=== PATIENT | female | born 1940 | race African-American/Black ===

== ENCOUNTER 2019-06-08 13:03 | Outpatient (CLI) | payer MEDICARE, SELFPAY ==
--- NOTE | ~2019-06-08 | CT_ITS ---
EXAMINATION: CT chest wo con DATE: 06/08/2019 13:29 INDICATION: Malignant neoplasm of the left lower lobe, history of breast cancer TECHNIQUE: Computed tomography (CT) of the chest was performed without intravenous contrast. The dose -length product (DLP) was 207.53 mGy-cm. Automated exposure control and iterative reconstruction tech nique were employed. COMPARISON: 10/16/2018 FINDINGS: There are airspace opacities as well as air bronchograms in the superior segment of the lef t lower lobe in the region of the previous biopsy proven lung cancer. There is moderate emphysema. Th ere is chronic scarring in the left lung apex. Subpleural reticular opacities seen anteriorly in the lungs may reflect therapy for prior breast cancer. There are lumpectomy changes in both breasts. Ther e is no pleural effusion or pneumothorax. No pathologically enlarged thoracic lymph nodes are identif ied. The heart size is normal. Calcified coronary artery atherosclerosis is noted. A hemangioma of th e T9 vertebral body and chronic compression fracture of T11 are again seen. IMPRESSION: 1. Bandlike airspace opacity and air bronchograms in the superior segment of the left lower lobe at t he site of the biopsy-proven malignancy. Findings could represent treatment change and/or residual ma lignancy. Reviewed, dictated and finalized at location A. GER MILITARY IMPRESSION: 1. Bandlike airspace opacity and air bronchograms in the superior segment of th e left lower lobe at the site of the biopsy-proven malignancy. Findings could r epresent treatment change and/or residual malignancy.
== END 2019-06-08 13:04 | disposition home or self-care (01) ==
LOC: ANHIMG 13:05
PROVIDERS: Visit Provider Radiology Radiation Oncology
DX: C34.32 Malignant neoplasm of lower lobe, left bronchus or lung (principal)
CPT/HCPCS: 71250

== ENCOUNTER 2019-06-16 16:16 | Emergency (ER) | payer MEDICARE, SELFPAY ==
--- NOTE | ~2019-06-16 | CT_ITS ---
EXAMINATION: CT brain wo con EXAM DATE: 06/16/2019 18:38 INDICATION: Posterior head injury. Seizure. TECHNIQUE: Spiral CT of the head was performed without contrast. Axial, coronal and sagittal images were reviewed. The dose-length product (DLP) for this examination was 605.33 mGy-cm. The exposure w as tailored according to patient size, and iterative reconstruction (ASIR) was used as additional dos e reduction technique. Comparison is made to prior examination from 05/01/2014. FINDINGS: There is an old small left parietal lobe cortical infarction. Compared to previous examinat ion, interval development of low density, more extensive encephalomalacia extending from this region down into the left temporoparietal, subinsular region. Has a chronic appearance. There is no acute intraparenchymal hemorrhage. No evidence of intraparenchymal brain mass lesion. N o evidence of acute infarction. There is no mass effect or midline shift. The ventricles are normal in size. There are no extra-axial collections. There are no acute calvarial fractures. The orbits are unremarkable. Small to moderate-sized posterior scalp contusion. The visualized sinuses and mast oid air cells are well aerated. IMPRESSION: 1. No acute intracranial findings. 2. Posterior scalp contusion. 3. 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 Reviewed, dictated and finalized at location A. ITIAN ASSISTANT
[2019-06-16 16:25] VITALS: BP 177/80; PULSE 87; RESP 16; TEMP 36.5; O2SAT 100
--- NOTE | 2019-06-16 19:12 | ED.HEATRA ---
HPI - Head Injury General Chief complaint: Head Injury Stated complaint: struck head during seizure Time Seen by Provider: 06/16/19 19:10 Source: patient and RN notes reviewed Mode of arrival: ambulatory Limitations: no limitations History of Present Illness HPI Narrative: Pt is a 79 y/o female presenting to the ED c/o occipital swelling. Pt reports she had a Sz and fell earlier today causing a swelling on her occipital head. Pt notes she has a Hx of Sz's and states she has stopped taking her prescription of Keppra due to not feeling like I need it . Pt's daughter at bedside states the pt has Sz's often but does not remember them. Pt notes she sees Dr. Moreno as her PCP and notes she is not currently seeing a Neurologist but is trying to set up an appointment with one. Pt also reports dysphagia. Per daughter, the pt lives alone. Pt states the swelling on her head has alleviated since its onset. Pt reports Hx's of HTN, breast cancer 2 years ago, and lumpectomy. Onset (ago): unknown (Earlier tonight) Mechanism of Injury: fall Place: home Associated symptoms: other (Chronic dysphagia) Related Data Home Medications Medication Instructions Recorded Confirmed amlodipine 5 mg PO DAILY 01/29/19 06/15/19 clonidine HCl 0.2 mg PO BID 01/29/19 06/15/19 dexamethasone 4 mg PO DAILY 01/29/19 06/15/19 ipratropium bromide 2 spray INTRANASAL BID 01/29/19 06/15/19 letrozole 2.5 mg PO DAILY 01/29/19 06/15/19 levetiracetam 500 mg PO BID 01/29/19 06/15/19 metoprolol succinate 50 mg PO DAILY 01/29/19 06/15/19 Allergies Allergy/AdvReac Type Severity Reaction Status Date / Time No Known Allergies Allergy Unverified 10/16/18 13:29 Review of Systems Review of Systems: All systems reviewed & are unremarkable except as noted in HPI and below ENT: Reports dysphagia (Chronic) Neurologic: Reports other (Occipital swelling) [facility] Past Medical History Medical History Breast cancer CVA (cerebral vascular accident) HTN (hypertension) Seizures Surgical History Surgical History H/O lumpectomy Family History Family History Father Family history of tuberculosis Sibling Family history of muscular dystrophy Mother Family history of heart disease in male family member before age 55 Other Diabetes mellitus Social History Social History Smoking status: Former smoker Smoking end date: 04/11/13 Alcohol intake: never Exam Const: General: cooperative, no acute distress and alert Nutritional Appearance: well nourished Orientation/consciousness: patient oriented x3 Limitations: no limitations HENMT: Head: contusion (Mild occipital swelling) Mouth: Yes lip normal Resp: Effort & Inspection: normal respiratory effort Auscultation: clear to auscultation bilaterally Cardio: Rate: regular rate Rhythm: regular rhythm Skin: General skin exam: normal color Neuro: General: patient oriented x3 Cognition (Neuro): normal cognition Speech: normal speech Extrem: General: normal to inspection, full ROM and no clubbing, cyanosis or edema Psych: Mental Status: mental status grossly normal Affect: normal affect Attitude: cooperative Course Course Emergency Course: Patient with no acute abnormalities noted on CT aside from scalp contusion. Discussed with patient importance of taking her anticonvulsant medication twice daily as prescribed. Patient has not been taking her medicine, hence why she had a seizure. Patient advised to follow-up with primary care physician for neurology referral as she does not currently have a neurologist. Will also provide contact information of the neurologist on staff here at [place]. Vital Signs Vital signs: Vital Signs Temperature 97.7 F 06/16/19 16:25 Pulse Rate 87 06/16/19 16:25 Respiratory Rate 16 06/16/19 16:25 B
[2019-06-16 19:38] VITALS: BP 142/80; PULSE 80; RESP 20; TEMP 36.7; O2SAT 99
[2019-06-16 19:40] VITALS: BP 140/80; PULSE 80; RESP 18; TEMP 36.7; O2SAT 100
== END 2019-06-16 19:42 | disposition home or self-care (01) ==
PROVIDERS: Emergency Provider Emergency Medicine; PCP Family Medicine
DX: S00.03XA Contusion of scalp, initial encounter (principal); G40.909 Epilepsy, unspecified, not intractable, without status epilepticus; I10 Essential (primary) hypertension; Z85.3 Personal history of malignant neoplasm of breast; Z87.891 Personal history of nicotine dependence; Z91.14 Patient's other noncompliance with medication regimen; W18.39XA Other fall on same level, initial encounter
CPT/HCPCS: 70450; 99284

== ENCOUNTER 2019-10-22 17:05 | Outpatient (CLI) | payer MEDICARE, SELFPAY ==
--- NOTE | ~2019-10-22 | CT_ITS ---
EXAMINATION:CT chest wo con DATE: 10/22/2019 17:36 INDICATION: Malignant neoplasm of left lung lower lobe. TECHNIQUE: Computed tomography (CT) of the chest was performed without intravenous contrast. Automate d exposure control and iterative reconstruction technique were employed. The dose-length product (DLP ) was 120.30 mGy-cm. COMPARISON: Chest CT 06/08/2019 FINDINGS: There is mild emphysema. There is peripheral radiation fibrosis at the anterolateral aspect s of both lungs. Calcified bilateral pulmonary nodules and calcified hilar and mediastinal lymph node s are consistent with old granulomatous disease. There is scarring at the lung apices, left worse vania n right. There are airspace and groundglass opacities in superior segment left lower lobe with volume loss and architectural distortion, consistent with radiation fibrosis. There is mild atelectasis danni aterally. No pleural effusion. The heart size is normal. There are coronary artery calcifications. No pericardial effusion. There are surgical changes in the breasts. There is moderate thoracic spondylo sis. IMPRESSION: 1. Radiation fibrosis in superior segment left lower lobe and at the anterolateral aspects of the susanne gs. No evidence of malignancy. Reviewed, dictated and finalized at location A. IMPRESSION: 1. Radiation fibrosis in superior segment left lower lobe and at the anterolate ral aspects of the lungs. No evidence of malignancy.
== END 2019-10-22 17:06 | disposition home or self-care (01) ==
PROVIDERS: Visit Provider Radiology Radiation Oncology
DX: C34.32 Malignant neoplasm of lower lobe, left bronchus or lung (principal); J70.1 Chronic and other pulmonary manifestations due to radiation
CPT/HCPCS: 71250

== ENCOUNTER 2020-01-22 15:32 | Outpatient (CLI) | payer MEDICARE, SELFPAY ==
--- NOTE | ~2020-01-22 | CT_ITS ---
EXAMINATION: CT chest wo con DATE: 01/22/2020 15:58 INDICATION: Malignant neoplasm of the left lower lobe TECHNIQUE: Computed tomography (CT) of the chest was performed without intravenous contrast. The dose -length product (DLP) was 134.41 mGy-cm. Automated exposure control and iterative reconstruction tech nique were employed. COMPARISON: 10/22/2019 FINDINGS: There is mild emphysema. Unchanged subpleural reticular opacities are present anteriorly in the upper lobes. Also seen is unchanged airspace and groundglass opacity in the superior segment of the left lower lobe with volume loss and architectural distortion. No new airspace opacities are iden tified. There is no pleural effusion or pneumothorax. Surgical changes are noted in the breasts. No p athologically enlarged thoracic lymph nodes are identified. The heart size is normal. Calcified coron randy artery atherosclerosis is noted. There is moderate thoracic spondylosis. IMPRESSION: 1. 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 Reviewed, dictated and finalized at location A.
== END 2020-01-22 15:33 | disposition home or self-care (01) ==
PROVIDERS: PCP Family Medicine; Visit Provider Radiology Radiation Oncology
DX: C34.32 Malignant neoplasm of lower lobe, left bronchus or lung (principal); J70.1 Chronic and other pulmonary manifestations due to radiation
CPT/HCPCS: 71250

== ENCOUNTER 2020-04-07 12:53 | Observation (INO) | payer MEDICARE, SELFPAY ==
[2020-04-07] VITALS (13 sets, daily range): BP systolic 153–198; BP diastolic 67–89; PULSE 58–100; RESP 13–18; TEMP 35.9–36.6; O2SAT 74–100; BMI 20.3; BMI 20.6
--- NOTE | ~2020-04-07 | CT_ITS ---
EXAMINATION: CTA chest PE protocol DATE: 04/08/2020 16:51 INDICATION: Shortness of breath, history of breast and lung cancer, elevated d-dimer TECHNIQUE: Computed tomography angiography (CTA) of the chest was performed with 100 mL Omnipaque-350 intravenous contrast timed to evaluate the pulmonary arteries. Coronal maximum intensity projection 3D-reconstructions were created by the technologist. The dose-length product (DLP) was 197.87 mGy-cm. Automated exposure control and iterative reconstruction technique were employed. COMPARISON: 01/22/2020 FINDINGS: The pulmonary arteries are well-opacified. No pulmonary embolism is identified. There is mi ld emphysema. Again noted are stable subpleural reticular opacities seen anteriorly in the upper lobe s. There is also stable opacity in the superior segment of the left lower lobe with volume loss and a rchitectural distortion. There is no pleural effusion or pneumothorax. No new airspace opacities are identified. There are surgical changes in both breasts. No pathologically enlarged thoracic lymph nod es are identified. The heart size is normal. IMPRESSION: 1. No pulmonary embolism or acute cardiopulmonary abnormality. 2. Stable chronic findings as described above. Reviewed, dictated and finalized at location A. ICAL RESEARCH MONITOR
--- NOTE | ~2020-04-07 | NM_ITS ---
EXAMINATION: NM gee stress w perfusion DATE: 04/08/2020 14:49 INDICATION: Chest pain TECHNIQUE: Rest images were obtained following intravenous administration of 9.5 mCi Tc99m tetrofosmi n (Myoview). The patient was infused intravenously with Lexiscan (Regadenoson). Then, 30.5 mCi Tc99m tetrofosmin (Myoview) was administered intravenously, and stress images were obtained. Data was recon structed into short axis and horizontal and vertical long axis SPECT images. Gated SPECT images were also obtained. COMPARISON: None. FINDINGS: There is no definite reversible or fixed perfusion abnormality to suggest ischemia or infar ction. There is normal left ventricular chamber size, wall motion and ejection fraction. Left ventr icular ejection fraction measures >70%. IMPRESSION: 1. Normal myocardial perfusion at rest and during stress. 2. Left ventricular ejection fraction measuring >70%. Reviewed, dictated and finalized at location A. DIAL PROJECT MANAGER
--- NOTE | ~2020-04-07 | XR_ITS ---
EXAMINATION: XR chest 2V EXAM DATE: 04/07/2020 13:40 INDICATION: Syncope. Chest pain and hypertension. Left lung cancer status post radiation treatment. TECHNIQUE: Frontal and lateral projections of the chest obtained and reviewed. Comparison is made to prior examination from 01/15/2019. Correlation was made with CT chest 01/22/2020. FINDINGS: There is chronic left apical capping and chronic bilateral hyperinflation. Small amount of left lower lobe superior segmental airspace disease which is new compared to x-ray from 2019, but wa s suspected to be radiation fibrosis on more recent CT scan. No pneumothorax or pleural effusion. Cardiomediastinal silhouette is normal. There are bony degenerat perry changes. IMPRESSION: Left lower lobe opacity likely chronic. No acute cardiopulmonary findings. Reviewed, dictated and finalized at location B. OF TECHNOLOGY IMPRESSION: Left lower lobe opacity likely chronic. No acute cardiopulmonary fi ndings.
--- NOTE | ~2020-04-07 | US_ITS ---
EXAMINATION: US venous doppler LE EXAM DATE: 04/08/2020 16:33 INDICATION: Elevated d-dimer. Syncope. Chest pain and hypertension. Lung cancer. TECHNIQUE: Multiple grayscale, color flow and Doppler images of the lower extremity deep venous syste ms bilaterally were obtained and reviewed. There is no prior study for comparison. FINDINGS: Right side: The right common femoral, femoral and profunda veins demonstrate normal color flow, respi ratory variation, augmentation and compressibility. Compressibility, color flow confirmed within the right popliteal, posterior tibial, peroneal, and greater saphenous veins. Left side: The left common femoral, femoral and profunda veins demonstrate normal color flow, respira tory variation, augmentation and compressibility. Compressibility, color flow confirmed within the l eft popliteal, posterior tibial, peroneal, and greater saphenous veins. IMPRESSION: 1. No lower extremity deep venous thrombosis bilaterally. Reviewed, dictated and finalized at location B. ORT OPERATIONS DUTY MANAGER
--- NOTE | 2020-04-07 12:56 | ECG_ITS ---
Measurements Intervals Sledge Rate: 66 P: 39 AL: 154 QRS: 56 QRSD: 85 T: 98 QT: 396 QTc: 417 Interpretive Statements SINUS RHYTHM WITH SINUS ARRHYTHMIA VOLTAGE CRITERIA FOR LVH BORDERLINE T WAVE ABNORMALITY- HIGH LATERAL LEADS BORDERLINE ECG Electronically Signed On 04-07-2020 13:18:30 ASSESSMENT CONSULTANT by Dariusz Monzon D.O.
--- NOTE | 2020-04-07 12:57 | PC.NURSE ---
kiran Conley [phone]
[2020-04-07 13:37] LABS: Anion Gap 7 mmol/L (8-16); Blood Urea Nitrogen 19 mg/dL (7-17); Calcium 9.9 mg/dL (8.4-10.2); Carbon Dioxide 27 mmol/L (22-30); Chloride 104 mmol/L (98-107); Estimated CRCL calculation 37 ml/min; Estimated Glomerular Filt Rate > 60; Glucose 102 mg/dL (65-105); INR 0.9; Potassium 3.9 mmol/L (3.4-5.0); Sodium 138 mmol/L (137-145)
[2020-04-07 13:38] LABS: Partial Thromboplastin Time 27.2 SECONDS (22.3-36.8)
[2020-04-07 13:40] LABS: Basophils Percent Auto 1.2 % (0.2-1.2); Eosinophils Absolute Auto 0.1 K/mm3 (0-0.3); Hematocrit 36.3 % (37.0-47.0); Hemoglobin 11.7 g/dL (12.0-15.0); Immature Granulocyte Absolute 0.01 K/mm3 (0.00-0.031); Immature Granulocyte Percent A 0.3 % (0-0.5); Lymphocytes Absolute Auto 1.22 K/mm3 (0.9-3.2); Lymphocytes Percent Auto 35.6 % (18.3-44.2); Mean Corpuscular HGB Conc 32.2 g/dl (32-36); Mean Corpuscular Volume 83.6 fl (80-100); Mean Platelet Volume 9.8 fl (7.4-10.4); Monocytes Absolute Auto 0.3 K/mm3 (0.1-0.6); Monocytes Percent Auto 7.9 % (2.6-8.5); Neutrophils Absolute Auto 1.8 K/mm3 (1.3-6.7); Platelet Count Result 179 k/mm3 (150-375); Red Blood Count 4.34 M/mm3 (4.2-5.4); Red Cell Distribution Width 15.5 % (11.5-14.5); White Blood Count 3.4 K/mm3 (4.5-10.0)
[2020-04-07 13:49] LABS: Troponin I < 0.012 ng/mL (0.000-0.034)
[2020-04-07 13:51] LABS: Large Platelets Present; Ovalocytes 1+ (NORMAL); Platelet Estimate Adequate (Adequate)
--- NOTE | 2020-04-07 14:06 | ED.CHESTPAIN ---
HPI - Chest Pain General Chief Complaint: Chest Pain Stated Complaint: cp Time Seen by Provider: 04/07/20 13:11 Source: patient Mode of arrival: ambulatory Limitations: no limitations History of Present Illness HPI narrative: 80 years old -[place] female presents with intermittent retrosternal discomfort for the last 2 weeks usually last for 1 to 2 minutes and then dissipate. Currently patient is asymptomatic. Patient lives alone and drove herself to the emergency room. Patient denies any fever, chills, shortness of breath, back pain, headache, nausea, vomiting, exposure to anybody with COVID-19. Patient also denies any aggravating or relieving factors or radiation of pain. Patient reports that her mother of a heart attack at age 76. Related Data Home Medications Medication Instructions Recorded Confirmed amlodipine 5 mg PO DAILY 01/29/19 01/25/20 clonidine HCl 0.2 mg PO BID 01/29/19 01/25/20 ipratropium bromide 2 spray INTRANASAL BID 01/29/19 01/25/20 letrozole 2.5 mg PO DAILY 01/29/19 01/25/20 levetiracetam 500 mg PO BID 01/29/19 01/25/20 metoprolol succinate 50 mg PO DAILY 01/29/19 01/25/20 Allergies Allergy/AdvReac Type Severity Reaction Status Date / Time No Known Allergies Allergy Verified 01/25/20 14:08 Review of Systems Review of Systems: Narrative: CONSTITUTIONAL: Denies fever, chills, or sweats. EYES: Denies visual changes, redness, or discharge. ENT: Denies rhinorrhea, congestion, sore throat, or otalgia. CARDIOVASCULAR: Denies chest pain, palpitations, or edema. RESPIRATORY: Denies cough or dyspnea. GASTROINTESTINAL: Denies abdominal pain, nausea, vomiting, or diarrhea. GENITOURINARY: Denies dysuria or hematuria. SKIN: Denies rash or itching. MUSCULOSKELETAL: Denies back pain, joint pain, or myalgia. NEUROLOGIC: Denies headache, numbness, or weakness. PSYCHIATRIC: Denies anxiety or depression. [facility] Past Medical History Medical History (Updated 04/07/20 @ 14:20 by Liborio Stearns MD) Breast cancer CVA (cerebral vascular accident) HTN (hypertension) Seizures Surgical History Surgical History H/O lumpectomy Family History Family History Father Family history of tuberculosis Sibling Family history of muscular dystrophy Mother Family history of heart disease in male family member before age 55 Other Diabetes mellitus Social History Social History Smoking status: Former smoker Smoking end date: 04/11/13 Alcohol intake: never Exam Narrative: Exam Narrative: General appearance: Well-developed, well-nourished Skin: Normal color Head: Normocephalic, nontraumatic Eyes: Clear conjunctiva ENT: Oropharynx normal, ears normal, nose normal Neck: Supple, nontender Chest and respiratory: Airway patent, no respiratory distress, no accessory muscle use Heart: Regular rate/rhythm Abdomen: Soft, nontender, no organomegaly, quiet bowel sounds Vascular: Normal peripheral pulses, normal capillary refill. Musculoskeletal: Normal range of motion, nontender back Neurologic: Alert and oriented ?3, FIELD APPLICATION ENGINEER is normal as tested, no gross motor deficit Course Course Emergency Course: Stable Consultations Consultation #1: Viviane Monk for Dr. Reynoso Admit to hospitalist Date: 04/07/20 Time: 14:21 Vital Signs Vital signs: Vital Signs Temperature 36.6 C 04/07/20 13:15 Pulse Rate 69 04/07/20 13:15 Respiratory Rate 16 04/07/20 13:15 Blood Pressure 198/71 H 04/07/20 13:15 Pulse Oximetry 99 04/07/20 13:15 Temperature 36.6 C 04/07/20 13:1
[2020-04-07] MEDS: ASPIRIN 81 MG CHEWABLE TABLET 324 MG PO (15:12)
--- NOTE | 2020-04-07 16:15 | ADMGEN ---
This patient, Mojgan Conley, was admitted to IMU Room 204-01. Patient/family oriented to hospital policies and general routines including ID bracelet, bed and alarms, visiting hours, pain management, procedures, bathroom and other care routines, personal items, smoking policy, room service/diet, and visiting hours. Information on how to activate the Rapid Response Team has been discussed. Patient/Family are encouraged to report perceived risks to care and to ask questions if they do not understand what they are told or what they should do.
[2020-04-07 16:36] LABS: D Dimer 1.43 ug/mL (<0.48)
[2020-04-07 17:40] LABS: Troponin I < 0.012 ng/mL (0.000-0.034)
--- NOTE | 2020-04-07 18:00 | PM.IMHP ---
H&P: HPI History of Present Illness Date/Time: 04/07/20 18:00 Chief Complaint: Chest pain. Narrative: Mojgan Conley is an 80-year-old female with history of breast cancer, lung cancer status post radiation, hypertension, and partial seizures who presented to the emergency department earlier today at the direction of her primary care provider for evaluation of intermittent chest pain over the past 2 weeks. She has a difficult time describing the discomfort that she has been feeling aside from the fact that she has had intermittent ?pain? starting in her mid chest radiating down to the umbilicus. This has occurred perhaps 3 to 4 times a day for the past 2 weeks, lasting 1 to 2 minutes at a time before dissipating without intervention. She sees no pattern as to when it occurs. She has no associated symptoms with this pain, and specifically denies shortness of breath, nausea, vomiting, and sweats. The pain is not pleuritic. It is not reproducible. She has not had epigastric or abdominal discomfort and she specifically denies heartburn and indigestion. Review of Systems Review of Systems: Narrative: Twelve systems were reviewed with pertinent positives and negatives as per HPI. She has not had her seizure for several years. No headache. No recent cold or flu symptoms. She has rare palpitations. No orthopnea, PND, or lower extremity edema. No history of venous thromboembolism. Except as documented all other systems reviewed and are negative. [facility] Past Medical History Medical History Anemia Bilateral breast cancer (~2015) Status post bilateral partial mastectomy with adjuvant radiation therapy and aromatase inhibitor. 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 Partial seizures Onset at age 55. Surgical History Surgical History History of colonoscopy (~12/2013) Removal of tubular adenoma and hyperplastic polyp. History of hemorrhoidectomy (~2010) History of partial mastectomy of both breasts (~09/2015) Family History Family History Father Family history of tuberculosis Sibling Family history of muscular dystrophy Hypertension Mother Family history of heart disease in male family member before age 55 Other Diabetes mellitus Social History Social History (Updated 04/07/20 @ 22:08 by Cass George PA-C) Social History: The patient lives in [place]. Smoked a few cigarettes a day intermittently over the years but has not he smoked for at least 5 years. No alcohol or illicit substance abuse. 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 Eder (daughter) and Gage (son) are her emergency contact and surrogate decision makers. She wishes to be a full code. Smoking status: Never smoker Smoking end date: 04/11/13 Alcohol intake: never Substance use: never Gender identity (if verbalized by the patient): Female Spiritual care concerns: No Meds Home Medications and Allergies Home Medications Medication Instructions Recorded Confirmed Type levetiracetam 500 mg PO Q12H 01/29/19 04/07/20 History metoprolol succinate 50 mg PO 1800 01/29/19 04/07/20 History clonidine HCl 0.1 mg PO 1800 04/07/20 04/07/20 History fluticasone propionate 2 spray INTRANASAL DAILY 04/07/20 04/07/20 History gabapentin 300 mg PO 1800 04/07/20 04/07/20 History Allergies Allergy/AdvReac Type Severity Reaction Status Date / Time No Known Allergies Allergy Verified 04/07/20 17:30 Vital Signs Vital Signs - 24 hr 04/07/20 13:15 04/07/20 13:41 04/07/20 14:01 Temperature 97.8 F Pulse Rate 70 62 67 Respiratory Rate 16 13 13 Blood Pressure 198/71 H 165/
[2020-04-07 19:58] LABS: Troponin I < 0.012 ng/mL (0.000-0.034)
[2020-04-07] MEDS: levETIRAcetam 500 MG TABLET PO (21:52)
[2020-04-07] MEDS: cloNIDine HCL 0.1 MG TABLET PO (21:53)
[2020-04-07] MEDS: GABAPENTIN 300 MG CAPSULE PO (21:53)
[2020-04-07] MEDS: PHARMACIST COMMUNICATION ORDER 1 EACH XX (21:53)
[2020-04-07] MEDS: METOPROLOL SUCCINATE EXT REL 50 MG TABCR PO (22:03)
[2020-04-08] VITALS (9 sets, daily range): BP systolic 120–143; BP diastolic 51–72; PULSE 59–85; RESP 14–16; TEMP 36.3–36.6; O2SAT 95–100
--- NOTE | 2020-04-08 | EST_ITS ---
Patient Info Name: Mojgan Conley Age: 80 years : 1940 Gender: Female Ht: 66 in Wt: 128 lbs BSA: 1.64 m2 Exam Date: 04/08/2020 1:11 PM Exam Location: [facility] Stress Patient Status: Inpatient Admit Date: 04/07/2020 Staff Ordering Physician: Jaiden Angel MD Attending Provider: Rosendo Norris MD Exercise Technologist: Evangelina Govea RDCS Exam Type: CA stress gee w NM Study Info Indications R07.9 - Chest pain, unspecified A regadenoson stress test was performed. Summary 1. Please correlate with nuclear medicine images, reported separately. 2. No abnormal ST-T wave changes with lexiscan. Protocol: Lexiscan Stress ECG Details Stage: REST Duration (min): 36 min : 45 sec HR (bpm): 67 SBP (mmHg): 131 DBP (mmHg): 75 Stage: REST Duration (min): 38 min : 3 sec HR (bpm): 69 SBP (mmHg): 131 DBP (mmHg): 75 Stage: STAGE 1 Duration (min): 0 min : 59 sec HR (bpm): 80 SBP (mmHg): 141 DBP (mmHg): 77 Stage: RECOVERY Duration (min): 1 min : 0 sec HR (bpm): 100 SBP (mmHg): 146 DBP (mmHg): 78 Stage: RECOVERY Duration (min): 2 min : 0 sec HR (bpm): 98 SBP (mmHg): 146 DBP (mmHg): 78 Stage: RECOVERY Duration (min): 3 min : 0 sec HR (bpm): 94 SBP (mmHg): 137 DBP (mmHg): 76 Stage: RECOVERY Duration (min): 4 min : 0 sec HR (bpm): 86 SBP (mmHg): 137 DBP (mmHg): 76 Stage: RECOVERY Duration (min): 4 min : 43 sec HR (bpm): 87 SBP (mmHg): 133 DBP (mmHg): 75 Rest HR: 69 bpm Peak HR: 100 bpm Rest Sys BP: 131 mmHg Peak Sys BP: 146 mmHg Max Pred HR: 140 bpm % Max Pred HR: 71 % Target HR: 119 bpm Max RPP: 14,600 bpm*mmHg Target HR Summary: Hemodynamic response to exercise was normal BP Response: Normal blood pressure response Termination Reason: Completed protocol Cardiac Symptoms: None Total Time: 1 min : 0 sec Rest Mejia BP: 75 mmHg Peak Mejia BP: 78 mmHg Total Dose: 0.4 mg Resting ECG Normal sinus rhythm. LVH. NT. Stress ECG No abnormal ST/T wave changes with exercise. Arrhythmias None. Report Signatures
[2020-04-08] MEDS: PANTOPRAZOLE SODIUM IV 40 MG VIAL IV PUSH (00:04)
[2020-04-08 05:09] LABS: Hematocrit 35.1 % (37.0-47.0); Hemoglobin 11.4 g/dL (12.0-15.0); Mean Corpuscular HGB Conc 32.5 g/dl (32-36); Mean Corpuscular Hemoglobin 27.4 pg (26-34); Mean Corpuscular Volume 84.4 fl (80-100); Mean Platelet Volume 10.1 fl (7.4-10.4); Platelet Count Result 175 k/mm3 (150-375); Red Blood Count 4.16 M/mm3 (4.2-5.4); Red Cell Distribution Width 15.4 % (11.5-14.5); White Blood Count 3.8 K/mm3 (4.5-10.0)
[2020-04-08 05:25] LABS: Alanine Aminotransferase 15 U/L (4-35); Albumin Level 3.7 g/dL (3.5-5.1); Alkaline Phosphatase 131 U/L (38-126); Anion Gap 6 mmol/L (8-16); Aspartate Amino Transferase 34 U/L (14-36); Bilirubin,Total 0.4 mg/dL (0.2-1.3); Blood Urea Nitrogen 18 mg/dL (7-17); Calcium 9.7 mg/dL (8.4-10.2); Carbon Dioxide 27 mmol/L (22-30); Chloride 103 mmol/L (98-107); Cholesterol 203 mg/dL (0-200); Estimated CRCL calculation 36 ml/min; Estimated Glomerular Filt Rate > 60; Glucose 92 mg/dL (65-105); HDL Direct 49 mg/dL; Magnesium 2.2 mg/dL (1.6-2.3); Potassium 3.7 mmol/L (3.4-5.0); Sodium 136 mmol/L (137-145); Triglycerides 139 mg/dL (<150)
[2020-04-08 05:36] LABS: LDL Cholesterol Direct 113 mg/dL
[2020-04-08] MEDS: levETIRAcetam 500 MG TABLET PO (08:42)
[2020-04-08] MEDS: ASPIRIN 81 MG CHEWABLE TABLET PO (08:42)
--- NOTE | 2020-04-08 10:12 | PM.CNCAR ---
Assessment and Plan Assessment and plan (1) Chest pain: Qualifiers: Chest pain type: unspecified Qualified Code(s): R07.9 - Chest pain, unspecified Code(s): R07.9 - Chest pain, unspecified Status: Acute Assessment and Plan: Patient presents with 2 week history of intermittent chest pain. Serial troponins are negative. EKG shows voltage criteria for LVH with nonspecific ST-T abnormalities. Patient's coronary risk factors include age, history of tobacco use. Will proceed with pharmacological MPI to assess for any significant myocardial ischemia. If MPI is negative or low risk, then patient can be discharged home with outpatient cardiology follow-up. Invasive workup with coronary angiogram if MPI is high risk. Continue aspirin, beta-chavez. (2) Hypertension: Code(s): I10 - Essential (primary) hypertension Status: Acute Assessment and Plan: Continue current antihypertensives. History of Present Illness History of Present Illness Consult date/time: 04/08/20 10:12 Date of consult: 04/08/2020 Reason for consult: Chest pain Requesting physician:MD Jinny Chief complaint: Chest pain HPI: 80-year-old female with hypertension, history of breast cancer, lung cancer status post radiation, ca lung, partial seizures. Patient admitted to [facility] on on 04/07/2020 with complaints of chest discomfort. Patient states that she has been experiencing chest pain, off and on for last couple of weeks. She describes her chest pain as sharp sensation in the substernal area with radiation to the epigastric area, 3 to 4 times a day, lasting for few minutes each time. Patient is unable to give any aggravating or relieving factors related to the chest pain. She denies shortness of breath, palpitation, dizziness, syncope or loss of consciousness. No PND, orthopnea lower extremity swelling. Patient does not recall any prior cardiac history including clinical MN, angina, heart failure or any arrhythmias. She states that these symptoms are new to her. Patient denies any fever or chills. No cough or congestion. Denies any known recent COVID 19 contacts. EKG on my personal evaluation shows sinus rhythm, voltage criteria for LVH, nonspecific ST-T abnormality. Serial troponins are negative. Chest x-ray showed left lower lobe opacity likely chronic without acute cardiopulmonary findings. Reason For Visit: Chest Pain Review of Systems Review of Systems: Narrative: General: Negative for fever, chills, fatigue Psychological: Negative for anxiety, depression Ophthalmic: negative for loss of vision ENT: Negative for epistaxis, headaches Allergy and immunology: Negative for hives, nasal congestion Hematologic and lymphatic: Negative for overt bleeding problems Endocrine: Negative for hot flashes, palpitations Respiratory: Negative for cough, hemoptysis Cardiovascular: Positive for chest pain Gastrointestinal: Negative for abdominal pain, nausea, vomiting, hematochezia Musculoskeletal: Negative for myalgia, joint pains Neurological: Negative for weakness Dermatological: Negative for rash, skin discoloration PMFSH Past Medical History Medical History Anemia Bilateral breast cancer (~2015) Status post bilateral partial mastectomy with adjuvant radiation therapy and aromatase inhibitor. 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 Partial seizures Onset at age 55. Surgical History Surgical History History of colonoscopy (~12/2013) Removal of tubular adenoma and hyperplastic polyp. History of hemorrhoidectomy (~2010) History of partial mastectomy of both breasts (~09/2015) Family History
--- NOTE | 2020-04-08 16:49 | PM.DS ---
DS: Admitting Diagnosis Admitting Diagnosis Admitting Diagnosis: Chest pain DS: Discharge Diagnosis Discharge Diagnosis (1) Chest pain: Qualifiers: Chest pain type: unspecified Qualified Code(s): R07.9 - Chest pain, unspecified Code(s): R07.9 - Chest pain, unspecified Status: Acute (2) Hypertension: Code(s): I10 - Essential (primary) hypertension Status: Acute (3) Anemia: Code(s): D64.9 - Anemia, unspecified Status: Acute (4) Partial seizures: Code(s): R56.9 - Unspecified convulsions Status: Inactive DS: Summary Hospital Course Reason for hospitalization: Chief Complaint: Chest pain. Narrative: Mojgan Conley is an 80-year-old female with history of breast cancer, lung cancer status post radiation, hypertension, and partial seizures who presented to the emergency department earlier today at the direction of her primary care provider for evaluation of intermittent chest pain over the past 2 weeks. She has a difficult time describing the discomfort that she has been feeling aside from the fact that she has had intermittent ?pain? starting in her mid chest radiating down to the umbilicus. This has occurred perhaps 3 to 4 times a day for the past 2 weeks, lasting 1 to 2 minutes at a time before dissipating without intervention. She sees no pattern as to when it occurs. She has no associated symptoms with this pain, and specifically denies shortness of breath, nausea, vomiting, and sweats. The pain is not pleuritic. It is not reproducible. She has not had epigastric or abdominal discomfort and she specifically denies heartburn and indigestion. Hospital Course: 80-year-old female presented emergency department with a complaint of chest pain patient was seen by Cardiology patient had a 3 sets of cardiac enzymes which were essentially normal and there was no acute changes on her EKG suggesting patient does not have acute coronary syndrome, to further evaluate patient had a Lexiscan which was essentially normal there was no ischemic event patient seen by spiral winding machine helper patient can be discharged home Status at Discharge Functional status at discharge: uses cane/walker Overall status at discharge: patient is back to baseline Time Spent with Patient Time attestation: Total time spent providing and/or coordinating discharge services: Patient was seen and examined at the time of the discharge Condition at discharge is stable Code status: Full code. Time spent preparing discharge summary, discharge medications, discussing discharge planning with geriatric case manager and patient is 35 minutes. Time spent: Greater than 30 minutes Exam Narrative: Exam Narrative: Elderly frail Patient is comfortable, NAD HEENT: eyes are clear and none icteric LUNGS:CTA HEART: RR S1S2 ABD: BS+, Soft and nontender Lower extremities: no edema SKIN: nonjaundiced Neuro: grossly intact. DS: Data Data Completed and Pending Labs on day of discharge: Labs from last 24 hours 04/08/20 04/08/20 04/07/20 04:22 04:22 19:26 WBC 3.8 L RBC 4.16 L Hgb 11.4 L Hct 35.1 L MCV 84.4 MCH 27.4 MCHC 32.5 RDW 15.4 H Plt Count 175 MPV 10.1 Sodium 136 L Potassium 3.7 Chloride 103 Carbon Dioxide 27 Anion Gap 6 L BUN 18 H Creatinine 1.00 Estim Creat Clear Calc 36 Estimated GFR > 60 Glucose 92 Calcium 9.7 Magnesium 2.2 Total Bilirubin 0.4 AST 34 ALT 15 Alkaline Phosphatase 131 H Troponin I < 0.012 Total Protein 8.0 Albumin 3.7 Triglycerides 139 Cholesterol 203 H LDL Cholesterol Direct 113 HDL Direct 49 04/07/20 17:09 WBC RBC Hgb Hct MCV MCH MCHC RDW Plt Count MPV Sodium Potassium Chloride Carbon Dioxide Anion Gap BUN Creatinine Estim Creat Clear Calc Estimated GFR Glucose Calcium Magnesium Total Bilirubin AST ALT Alkaline Phosphatase Troponin I < 0.012 Tot
== END 2020-04-08 18:00 | disposition home or self-care (01) ==
LOC: ANHED 14:20 → ANHIMU 17:14
PROVIDERS: Physician Assistant; Admitting Provider Internal Medicine; Emergency Provider Emergency Medicine; PCP Family Medicine; Visit Provider Family Medicine
DX: R07.9 Chest pain, unspecified (principal); I10 Essential (primary) hypertension; D64.9 Anemia, unspecified; R56.9 Unspecified convulsions; Z85.3 Personal history of malignant neoplasm of breast; Z85.118 Personal history of other malignant neoplasm of bronchus and lung; Z86.73 Personal history of transient ischemic attack (TIA), and cerebral infarction without residual deficits; Z87.891 Personal history of nicotine dependence; Z90.13 Acquired absence of bilateral breasts and nipples; Z92.3 Personal history of irradiation
CPT/HCPCS: 36415; 71046; 71275; 78452; 80048; 80053; 80061; 83735; 84484; 85025; 85027; 85380; 85610; 85730; 93005; 93017; 93970; 96374; 99285; A9270; A9502; C9113; G0378; J2785; Q9967

== ENCOUNTER 2020-06-02 11:14 | Outpatient (CLI) | payer MEDICARE, SELFPAY ==
--- NOTE | ~2020-06-02 | CT_ITS ---
EXAMINATION:CT diagnostic chest wo con DATE: 06/02/2020 11:44 INDICATION: Left lung cancer. TECHNIQUE: Computed tomography (CT) of the chest was performed without intravenous contrast. Automate d exposure control and iterative reconstruction technique were employed. The dose-length product (DLP ) was 136.78 mGy-cm. COMPARISON: Chest CT 04/08/2020, 10/16/18 FINDINGS: There is moderate emphysema. There are changes of radiation fibrosis in the peripheral ante rolateral aspects and apices of both lungs, likely from breast radiation. Calcified bilateral lung no dules and calcified hilar and mediastinal lymph nodes are consistent with old granulomatous disease. There are airspace opacities with volume loss and architectural distortion involving superior segment left lower lobe, consistent with radiation fibrosis for lung cancer treatment. No pleural effusion. There are surgical changes in both breasts. The heart size is normal. There are coronary artery calci fications. No pericardial effusion. There is mild thoracic spondylosis. Again seen is a hemangioma in T9 vertebral body. There is a chronic compression fracture of T11. IMPRESSION: 1. Stable areas of radiation fibrosis in the lungs. 2. Moderate emphysema. Reviewed, dictated and finalized at location A. HEN ASSISTANT
== END 2020-06-02 11:15 | disposition home or self-care (01) ==
LOC: ANHIMG 11:21
PROVIDERS: PCP Family Medicine; Visit Provider Radiology Radiation Oncology
DX: C34.32 Malignant neoplasm of lower lobe, left bronchus or lung (principal); J70.1 Chronic and other pulmonary manifestations due to radiation; J43.9 Emphysema, unspecified
CPT/HCPCS: 71250

== ENCOUNTER 2020-08-09 11:08 | Emergency (ER) | payer MEDICARE, SELFPAY ==
--- NOTE | ~2020-08-09 | XR_ITS ---
XR chest 2V DATE: 08/09/2020 12:55 INDICATION: Dizziness TECHNIQUE: AP and lateral views COMPARISON: 06/02/2020 CT chest 03/30/2022 view chest FINDINGS: Normal heart size. No hilar or mediastinal enlargement. Chronic left apical prominent capping and left lung volume loss , stable since 04/07/2020. Superior segment left lower lobe infiltrate, mass, atelectasis and/or scarring, relatively stable in appearance since 04/07/2020. No interval pulmonary infiltrate or consolidation or pulmonary mass lesion is evident. No pleural effusion or pulmonary vascular congestion or pneumothorax. Diffuse osteopenia. IMPRESSION: No significant change since 04/07/2020 Reviewed, dictated and finalized at location A.
--- NOTE | ~2020-08-09 | CT_ITS ---
EXAMINATION: CT brain wo con DATE: 08/09/2020 12:47 INDICATION: Head injury. Dizziness, generalized weakness TECHNIQUE: Computed tomography (CT) of the head was performed without intravenous contrast. The mA wa s adjusted according to patient size. Iterative reconstruction technique was employed. Exam dose: 60 5.33 mGy-cm total exam DLP. COMPARISON: 06/16/2019 CT brain FINDINGS: Bilateral vertebral and carotid siphon and left supraclinoid internal carotid artery calcif ications. There is nonspecific diminished attenuation cerebral white matter, likely due to chronic small vessel ischemic changes. Old left parietal cerebrovascular accident(s), within left middle cerebral artery territory. This is stable since 06/16/2019. No intracranial mass lesion or hemorrhage or recent cerebrovascular accident is evident. No midline shift or mass effect effect. With the exception of mild mucoperiosteal thickening at the included upper posterior aspect of the le ft maxillary sinus and focal soft tissue thickening of an anterior right ethmoid air cell, the includ ed paranasal sinuses and mastoid air cells are unremarkable. No fracture or bone destruction of the cranial vault. IMPRESSION: Old left parietal cerebrovascular infarct(s) No acute intracranial finding or significant change since 06/16/2019 Reviewed, dictated and finalized at Location A. Reviewed, dictated and finalized at location A.
[2020-08-09 11:14] VITALS: BP 175/52; PULSE 69; RESP 14; O2SAT 100
[2020-08-09 11:19] VITALS: TEMP 36.6
--- NOTE | 2020-08-09 12:25 | PC.NURSE ---
ED MD at bedside for assessment
--- NOTE | 2020-08-09 12:33 | ECG_ITS ---
Measurements Intervals [place] Rate: 54 P: 28 CT: 155 QRS: 65 QRSD: 91 T: 105 QT: 422 QTc: 403 Interpretive Statements SINUS BRADYCARDIA MINIMAL Q WAVES- INFERIOR LEADS BORDERLINE T WAVE ABNORMALITY- LAT/HIGH LAT LEADS BASELINE ARTIFACT- I, II, III, AVR, AVL, AVF, V3-V6 BORDERLINE ECG Electronically Signed On 08-09-2020 17:14:09 CDT by Dariusz Monzon D.O.
--- NOTE | 2020-08-09 12:36 | ED.GENADULT ---
HPI - General Adult General Chief complaint: Weakness Stated complaint: chest pain/blood pressure issues Time Seen by Provider: 08/09/20 11:25 Source: patient and family Mode of arrival: ambulatory Limitations: no limitations History of Present Illness HPI narrative: Pt presents to ER with complaints of generalized weakness and dizziness. She states she went to get up out of bed when she felt dizzy. She states she checked her blood pressure and reading was 190/90's. She became concerned so she called her son, who brought her to the hospital for further evaluation. She denies any chest pain or shortness of breath. Her son indicates that she has a history of self medicating in reference to her blood pressure medications. She states has a hx of TIA and her son states she has some chronic speech deficits related to this. Denies any fever, chills, abdominal pain, urinary symptoms. She lives at home independently and states over the last week she has had problems getting up and the down the steps at home. She does not use an assistive device for mobilization. Related Data Home Medications Medication Instructions Recorded Confirmed levetiracetam 500 mg PO Q12H 01/29/19 04/07/20 metoprolol succinate 50 mg PO 1800 01/29/19 04/07/20 clonidine HCl 0.1 mg PO 1800 04/07/20 04/07/20 fluticasone propionate 2 spray INTRANASAL DAILY 04/07/20 04/07/20 gabapentin 300 mg PO 1800 04/07/20 04/07/20 Allergies Allergy/AdvReac Type Severity Reaction Status Date / Time No Known Allergies Allergy Verified 04/07/20 17:30 Review of Systems Review of Systems: Narrative: CONSTITUTIONAL: Denies fever, chills, or sweats. EYES: Denies visual changes, redness, or discharge. ENT: Denies rhinorrhea, congestion, sore throat, or otalgia. CARDIOVASCULAR: Denies chest pain, palpitations, or edema. RESPIRATORY: Denies cough or dyspnea. GASTROINTESTINAL: Denies abdominal pain, nausea, vomiting, or diarrhea. GENITOURINARY: Denies dysuria or hematuria. SKIN: Denies rash or itching. MUSCULOSKELETAL: Denies back pain, joint pain, or myalgia. NEUROLOGIC: Reports fatigue, generalized weakness and dizziness PSYCHIATRIC: Denies anxiety or depression. [facility] Past Medical History Medical History Anemia Bilateral breast cancer (~2015) Status post bilateral partial mastectomy with adjuvant radiation therapy and aromatase inhibitor. 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 Partial seizures Onset at age 55. Surgical History Surgical History History of colonoscopy (~12/2013) Removal of tubular adenoma and hyperplastic polyp. History of hemorrhoidectomy (~2010) History of partial mastectomy of both breasts (~09/2015) Family History Family History Father Family history of tuberculosis Sibling Family history of muscular dystrophy Hypertension Mother Family history of heart disease in male family member before age 55 Other Diabetes mellitus Social History Social History Social History: The patient lives in [place]. Smoked a few cigarettes a day intermittently over the years but has not he smoked for at least 5 years. No alcohol or illicit substance abuse. 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 Eder (daughter) and Gage (son) are her emergency contact and surrogate decision makers. She wishes to be a full code. Smoking status: Never smoker Smoking end date: 04/11/13 Alcohol intake: never Substance use: never Gender identity (if verbalized by the patient): Female Spiritual care concerns: No Course C
[2020-08-09 13:00] VITALS: BP 163/72; PULSE 58; RESP 14; O2SAT 100
[2020-08-09 13:18] LABS: Eosinophils Absolute Auto 0.1 K/mm3 (0-0.3); Eosinophils Percent Auto 1.5 % (0-4.4); Hematocrit 42.1 % (37.0-47.0); Hemoglobin 12.9 g/dL (12.0-15.0); Immature Granulocyte Absolute 0.01 K/mm3 (0.00-0.031); Immature Granulocyte Percent A 0.2 % (0-0.5); Lymphocytes Absolute Auto 1.42 K/mm3 (0.9-3.2); Lymphocytes Percent Auto 35.2 % (18.3-44.2); Mean Corpuscular HGB Conc 30.6 g/dl (32-36); Mean Corpuscular Hemoglobin 26.3 pg (26-34); Mean Corpuscular Volume 85.9 fl (80-100); Mean Platelet Volume 9.5 fl (7.4-10.4); Monocytes Absolute Auto 0.3 K/mm3 (0.1-0.6); Monocytes Percent Auto 6.2 % (2.6-8.5); Neutrophils Absolute Auto 2.3 K/mm3 (1.3-6.7); Neutrophils Percent Auto 55.9 % (45.5-73.1); Platelet Count Result 199 k/mm3 (150-375); Red Cell Distribution Width 15.6 % (11.5-14.5)
[2020-08-09 13:26] LABS: INR 0.9
[2020-08-09 13:27] LABS: Partial Thromboplastin Time 27.6 SECONDS (22.3-36.8)
[2020-08-09 13:29] LABS: Alanine Aminotransferase 18 U/L (4-35); Albumin Level 4.2 g/dL (3.5-5.1); Alkaline Phosphatase 125 U/L (38-126); Anion Gap 5 mmol/L (8-16); Aspartate Amino Transferase 46 U/L (14-36); Bilirubin,Total 0.5 mg/dL (0.2-1.3); Blood Urea Nitrogen 13 mg/dL (7-17); Calcium 9.8 mg/dL (8.4-10.2); Carbon Dioxide 30 mmol/L (22-30); Chloride 106 mmol/L (98-107); Estimated Glomerular Filt Rate > 60; Glucose 97 mg/dL (65-105); Potassium 4.2 mmol/L (3.4-5.0); Sodium 141 mmol/L (137-145)
[2020-08-09 13:40] LABS: NT Pro B Type Natriuretic Pept 832 pg/mL (5-100); Troponin I < 0.012 ng/mL (0.000-0.034)
[2020-08-09 13:58] LABS: Thyroid Stimulating Hormone 0.317 uIU/mL (0.465-4.680)
[2020-08-09 14:13] LABS: Free T4 Free Thyroxine 1.04 ng/mL (0.78-2.19)
[2020-08-09 14:36] LABS: Add Urine Microscopic? NO; Appearance Urine Clear (Clear); Bilirubin Urine Negative (Negative); Blood Urine Negative (Negative); Color Urine Straw (Yellow); Glucose Urine UA Negative (Negative); Ketones Urine Negative (Negative); Leukocyte Esterase Ur Negative LEU/UL (Negative); Nitrate Urine Negative (Negative); Protein Urine Negative (Negative); Specific Grav Ur 1.006 (1.001-1.035); Urobilinogen Urine Negative mg/dL (<2.0)
--- NOTE | 2020-08-09 15:55 | PC.NURSE ---
Pt ambulated steady gait in room with stand-by assist
== END 2020-08-09 16:00 | disposition home or self-care (01) ==
PROVIDERS: Emergency Provider Nurse Practitioner; PCP Family Medicine
DX: I10 Essential (primary) hypertension (principal); R42 Dizziness and giddiness; E07.9 Disorder of thyroid, unspecified; I69.928 Other speech and language deficits following unspecified cerebrovascular disease; Z85.118 Personal history of other malignant neoplasm of bronchus and lung; Z86.2 Personal history of diseases of the blood and blood-forming organs and certain disorders involving the immune mechanism; Z90.13 Acquired absence of bilateral breasts and nipples; Z85.3 Personal history of malignant neoplasm of breast; Z87.891 Personal history of nicotine dependence; R00.1 Bradycardia, unspecified; R94.31 Abnormal electrocardiogram [ECG] [EKG]
CPT/HCPCS: 36415; 70450; 71046; 80053; 81003; 83880; 84439; 84443; 84484; 85025; 85610; 85730; 93005; 99284

== ENCOUNTER 2020-10-01 12:51 | Outpatient (CLI) | payer MEDICARE, SELFPAY | END 2020-10-01 12:52 | disposition home or self-care (01) | LOC: ANHAUDASC 12:52 | PROVIDERS: PCP Family Medicine; Visit Provider Family Medicine | DX: H93.13 Tinnitus, bilateral (principal); H90.3 Sensorineural hearing loss, bilateral | CPT/HCPCS: 92557; 92567 ==

== ENCOUNTER 2021-06-05 22:13 | Emergency (ER) | payer MEDICARE, SELFPAY ==
--- NOTE | ~2021-06-05 | CT_ITS ---
EXAMINATION: CT brain wo con INDICATION: Breast and lung cancer COMPARISON: 08/09/2020 TECHNIQUE: Standard unenhanced head CT. The dose-length product (DLP) was 605.33 mGy-cm. The mA was a djusted according to patient size. Iterative reconstruction technique was employed. FINDINGS: There is no acute intraparenchymal hemorrhage. No evidence of mass lesion. No evidence of a cute infarction. There is a chronic left frontal, temporal, and parietal infarction. There is mild pe riventricular and subcortical hypodensity probably related to small vessel ischemic disease. There is mild prominence of the sulci and ventricles related to cerebral atrophy. Intracranial calcified cere bral atherosclerosis is noted. There are no extra-axial collections. There is no mass effect or midli ne shift. The orbits and soft tissues are unremarkable. The visualized sinuses and mastoid air cells are well aerated. IMPRESSION: 1. Areas of prior infarction without acute intracranial abnormality. 2. Age related findings. Reviewed, dictated and finalized at location F. LIC FABRICATOR
[2021-06-05 22:16] VITALS: BP 182/92; PULSE 78; RESP 18; TEMP 36.7; O2SAT 99
[2021-06-05 22:32] VITALS: BP 111/91; PULSE 110; PULSE 94; RESP 21; O2SAT 100
--- NOTE | 2021-06-05 22:37 | ECG_ITS ---
Measurements Intervals [place] Rate: 95 P: 67 LA: 132 QRS: 72 QRSD: 92 T: 69 QT: 388 QTc: 490 Interpretive Statements SINUS RHYTHM MINIMAL Q WAVES- ANTEROLAT/INF LEADS BASELINE ARTIFACT- I, II, III, AVR, AVL, AVF, V2-V6 BORDERLINE ECG Electronically Signed On 06-06-2021 6:18:42 DIRECTOR OF PEOPLE by Dariusz Monzon D.O.
[2021-06-05 22:47] VITALS: BP 174/96
--- NOTE | 2021-06-05 23:03 | ED.AMS ---
HPI - Altered Mental Status General Chief Complaint: Altered Mental Status Stated Complaint: I think she has a UTI Time Seen by Provider: 06/05/21 22:36 Source: patient Mode of arrival: ambulatory Limitations: no limitations History of Present Illness HPI narrative: Patient is an 81-year-old female brought in by daughter due to confusion, I think she has a UTI . According to daughter she had similar episodes in the past and usually if she was diagnosed with a UTI. Patient on arrival has no complaints. Patient denies any headache, dizziness, chest pain, shortness of breath, abdominal pain, nausea, vomiting, diarrhea, urinary symptoms, fever or chills. Related Data Home Medications Medication Instructions Recorded Confirmed levetiracetam 500 mg PO Q12H 01/29/19 04/07/20 metoprolol succinate 50 mg PO 1800 01/29/19 04/07/20 aspirin 81 mg PO DAILY 06/05/21 06/05/21 Allergies Allergy/AdvReac Type Severity Reaction Status Date / Time No Known Allergies Allergy Verified 06/05/21 22:36 Review of Systems Review of Systems: All systems reviewed & are unremarkable except as noted in HPI and below Constitutional: Constitutional: Denies body ache(s), Denies chills, Denies excessive sweating, Denies fatigue, Denies fever(s), Denies headache(s), Denies lethargy, Denies malaise, Denies weakness and Denies weight loss Eyes: Eyes: Denies blurry vision, Denies change in vision and Denies loss of vision ENT: Denies dizziness, Denies ear discharge, Denies headache(s), Denies lip swelling, Denies epistaxis, Denies nasal congestion, Denies neck pain, Denies throat swelling and Denies tongue swelling Cardiovascular: Cardiovascular: Denies chest pain, Denies chest pain at rest, Denies chest pain with activity, Denies diaphoresis, Denies rapid heart rate, Denies edema, Denies irregular heart rhythm, Denies lightheadedness, Denies palpitations, Denies dyspnea and Denies dyspnea on exertion Respiratory: Respiratory: Denies chest congestion, Denies cough, Denies hemoptysis, Denies dyspnea and Denies dyspnea on exertion Gastrointestinal: Gastrointestinal: Denies abdominal pain, Denies melena, Denies hematochezia, Denies diarrhea, Denies nausea, Denies vomiting and Denies hematemesis Musculoskeletal: Musculoskeletal: Denies abnormal gait, Denies deformity, Denies joint swelling, Denies limited range of motion, Denies neck pain and Denies numbness Neurologic: Denies Abnormal speech present, Denies abnormal gait, Denies confusion, Denies dizziness, Denies headache(s), Denies focal weakness, Denies loss of vision, Denies numbness, Denies Other visual disturbances, Denies Sensory deficit (Neuro) and Denies weakness Psychiatric: Psychiatric: Denies depression, Denies auditory hallucinations, Denies homicidal ideation and Denies suicidal ideation Endocrine: Endocrine: Denies cold intolerance, Denies excessive sweating, Denies fatigue, Denies heat intolerance and Denies palpitations Hematologic/Lymphatic: Hematologic/Lymphatic: Denies easy bleeding and Denies easy bruising Allergic/Immunologic: Allergic/Immunologic: Denies lip swelling, Denies throat swelling and Denies tongue swelling PMFSH Past Medical History Medical History Anemia Bilateral breast cancer (~2015) Status post bilateral partial mastectomy with adjuvant radiation therapy and aromatase inhibitor. 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 Partial seizures Onset at age 55. Surgical History Surgical History History of colonoscopy (~12/2013) Removal of tubular adenoma and hyperplastic polyp. History of hemorrhoidectomy (~2010) History of partial mastectomy of both breasts (~09/2015
--- NOTE | 2021-06-05 23:13 | PC.NURSE ---
Pt refuses lab draw, states I just had it done at [place] .
[2021-06-05 23:22] VITALS: BP 146/104; PULSE 98; RESP 16; O2SAT 99
[2021-06-05 23:30] LABS: Basophils Absolute Auto 0.1 K/mm3 (0.0-0.1); Basophils Percent Auto 1.1 % (0.2-1.2); Eosinophils Absolute Auto 0.1 K/mm3 (0-0.3); Eosinophils Percent Auto 0.9 % (0-4.4); Hematocrit 40.6 % (37.0-47.0); Hemoglobin 13.2 g/dL (12.0-15.0); Immature Granulocyte Absolute 0.01 K/mm3 (0.00-0.031); Immature Granulocyte Percent A 0.2 % (0-0.5); Lymphocytes Absolute Auto 1.92 K/mm3 (0.9-3.2); Lymphocytes Percent Auto 29.5 % (18.3-44.2); Mean Corpuscular HGB Conc 32.5 g/dl (32-36); Mean Corpuscular Hemoglobin 28.4 pg (26-34); Mean Corpuscular Volume 87.5 fl (80-100); Mean Platelet Volume 9.9 fl (7.4-10.4); Monocytes Absolute Auto 0.6 K/mm3 (0.1-0.6); Monocytes Percent Auto 9.2 % (2.6-8.5); Neutrophils Absolute Auto 3.9 K/mm3 (1.3-6.7); Neutrophils Percent Auto 59.1 % (45.5-73.1); Platelet Count Result 207 k/mm3 (150-375); Red Blood Count 4.64 M/mm3 (4.2-5.4); Red Cell Distribution Width 14.9 % (11.5-14.5); White Blood Count 6.5 K/mm3 (4.5-10.0)
[2021-06-05 23:31] VITALS: BP 171/85; PULSE 79; RESP 14; O2SAT 100
[2021-06-05 23:34] LABS: Add Urine Microscopic? YES; Appearance Urine Clear (Clear); Bacteria Urine Trace /hpf; Bilirubin Urine Negative (Negative); Blood Urine Negative (Negative); Color Urine Colorless (Yellow); Glucose Urine UA Negative (Negative); Ketones Urine Negative (Negative); Leukocyte Esterase Ur Trace LEU/UL (Negative); Nitrate Urine Negative (Negative); Protein Urine Negative (Negative); RBC Urine 0-2 /hpf (0-2); Specific Grav Ur 1.006 (1.001-1.035); Squamous Epithelial Cell Urine Occasional /hpf (Few); Urobilinogen Urine Negative mg/dL (<2.0); WBC Urine 0-3 /hpf
[2021-06-05 23:47] VITALS: BP 181/76; O2SAT 100
[2021-06-05 23:52] LABS: Alanine Aminotransferase 22 U/L (4-35); Albumin Level 4.7 g/dL (3.5-5.1); Alkaline Phosphatase 136 U/L (38-126); Anion Gap 7 mmol/L (8-16); Aspartate Amino Transferase 44 U/L (14-36); Bilirubin,Total 0.4 mg/dL (0.2-1.3); Blood Urea Nitrogen 18 mg/dL (7-17); Calcium 9.8 mg/dL (8.4-10.2); Carbon Dioxide 30 mmol/L (22-30); Chloride 105 mmol/L (98-107); Estimated CRCL calculation 26 ml/min; Estimated Glomerular Filt Rate 58; Glucose 138 mg/dL (65-110); Potassium 3.6 mmol/L (3.4-5.0); Sodium 142 mmol/L (137-145)
[2021-06-06 00:02] VITALS: BP 182/76
[2021-06-06 00:04] LABS: Troponin I < 0.012 ng/mL (0.000-0.034)
--- NOTE | 2021-06-06 00:15 | PC.NURSE ---
Pt ambulatory to and from bathroom. When attempt to hook pt back up to the monitoring equipment, states oh no you're not, I'm going home. I'm getting dressed . Explained that the labs are back and that will have the physician come and speak with the patient when available regarding test results. Pt becoming increasingly suspicious of staff.
--- NOTE | 2021-06-06 00:30 | PC.NURSE ---
Keflex pill opened, sprinkled on applesauce as pt states cannot swallow pills. When offered applesauce with medication in it, pt states I ain't taking that shit! and pushes nurse away. Explained that it's so she doesn't have to go to the pharmacy tonight, states I tell you I ain't doing it, I'm going home'. Pt given the water po that this RN brought in with her, takes one drink and states I ain't taking this shit either! and throws cup into the sink. Pt walks out of the room ambulatory. Discussed d/c instructions with pt's daughter. Explained that someone may want to stay with the patient [facility] for her safety. Pt has continuously acted suspicious while in ED, reports that her family is after her money.
== END 2021-06-06 00:35 | disposition home or self-care (01) ==
PROVIDERS: Emergency Provider Emergency Medicine; PCP Family Medicine
DX: R41.0 Disorientation, unspecified (principal); N39.0 Urinary tract infection, site not specified; I10 Essential (primary) hypertension; Z85.3 Personal history of malignant neoplasm of breast; Z85.118 Personal history of other malignant neoplasm of bronchus and lung; Z86.73 Personal history of transient ischemic attack (TIA), and cerebral infarction without residual deficits; Z90.13 Acquired absence of bilateral breasts and nipples; Z92.3 Personal history of irradiation; Z79.82 Long term (current) use of aspirin; Z87.891 Personal history of nicotine dependence; R94.31 Abnormal electrocardiogram [ECG] [EKG]
CPT/HCPCS: 36415; 70450; 80053; 81001; 84484; 85025; 93005; 99284

== ENCOUNTER 2021-10-29 19:13 | Observation (INO) | payer MEDICARE, SELFPAY ==
--- NOTE | ~2021-10-29 | XR_ITS ---
EXAMINATION: XR chest 2V DATE: 10/30/2021 01:07 INDICATION: Altered mental status TECHNIQUE: PA and lateral views of the chest were obtained. COMPARISON: Chest radiograph dated 08/29/2020 FINDINGS: Chronic volume loss in the left hemithorax with unchanged pleural parenchymal scarring with capping o f the left apex. Bandlike opacity at the posterior left midlung zone with appearance on prior CT most consistent with radiation fibrosis. Postoperative change of prior excisional biopsy of the right dolly ast with chronic partially calcified nodular density in the right breast resulting in a nodular opaci ty projecting over the anterior lower lung zones on the lateral projection which can be seen dating b ack to 12/02/2017. No new airspace opacities, pulmonary edema, pleural effusion or pneumothorax. The c ardiomediastinal silhouette is normal. Moderate to severe thoracic spondylosis. IMPRESSION: 1. Stable appearance of mild volume loss and chronic scarring in the left lung likely related to radi ation fibrosis. No acute cardiopulmonary disease. Reviewed, dictated and finalized at location A. IMPRESSION: 1. 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 No acute cardiopulmonary disease.
--- NOTE | ~2021-10-29 | CT_ITS ---
EXAMINATION: CT brain wo con DATE: 10/29/2021 23:04 INDICATION: Altered mental status TECHNIQUE: Computed tomography (CT) of the head was performed without intravenous contrast. The dose- length product was 605.33 mGy-cm. Automated exposure control and iterative reconstruction technique w ere employed. COMPARISON: CT dated 06/05/2021 FINDINGS: Chronic left parietal lobe infarction with encephalomalacia. Generalized atrophy. There are scattered mild periventricular and subcortical white matter changes, most likely related to small ve ssel ischemic disease (microangiopathy). No acute intracranial hemorrhage, infarction, mass or mass e ffect. No ventriculomegaly or midline shift. Basilar cisterns are patent. Small left maxillary sinus air-fluid level consistent with sinusitis. Mastoids are pneumatized. No depressed skull fractures. IMPRESSION: 1. No acute intracranial abnormality. 2: Chronic left parietal lobe infarction with encephalomalacia. 3: Chronic age-related findings. Reviewed, dictated and finalized at location A.
[2021-10-29 19:27] VITALS: BP 128/53; PULSE 99; RESP 18; TEMP 37.1; O2SAT 99
[2021-10-29 22:48] LABS: Appearance Urine Clear (Clear); Bilirubin Urine Negative (Negative); Blood Urine Negative (Negative); Color Urine Yellow (Yellow); Glucose Urine UA Negative (Negative); Ketones Urine Negative (Negative); Leukocyte Esterase Ur 1+ LEU/UL (Negative); Nitrate Urine Negative (Negative); Protein Urine 1+ mg/dL (Negative); Specific Grav Ur 1.015 (1.001-1.035); Urobilinogen Urine 0.2 mg/dL (<2.0)
[2021-10-29 22:50] VITALS: O2SAT 100
[2021-10-29 22:52] VITALS: BP 130/67; PULSE 84; RESP 16; O2SAT 100
[2021-10-29 22:52] LABS: Bacteria Urine Trace /hpf; Mucus Urine Rare /lpf; RBC Urine 0-2 /hpf (0-2); Squamous Epithelial Cell Urine Moderate /hpf (Few)
--- NOTE | 2021-10-29 22:52 | ED.FEMALEGU ---
HPI - Female Genitourinary General Chief complaint: Urogenital-Female <Deepti Buitrago PA-C - Last Filed: 10/30/21 03:17> Stated complaint: uti <Deepti Buitrago PA-C - Last Filed: 10/30/21 03:17> Time Seen by Provider: 10/29/21 22:38 <Deepti Buitrago PA-C - Last Filed: 10/30/21 03:17> History of Present Illness HPI Narrative: Patient is an 81-year-old female here for evaluation of altered mental status for the past week and a half. History largely obtained from patient's son given patient's mental status. She has remained altered over the past 10 days, patient's son states that she will frequently escape the house, walk and oncoming traffic, and is disoriented and confused. He states that in the past, his mom has experienced altered mental status when she has had a UTI. She was treated for UTI in May of this year when she was altered with improvement of her symptoms. When she started acting like this again last week, she was also given a course of antibiotics, but patient did not take them because I didn't want to . Reportedly refuses medications. She lives by herself. She was hospitalized at [facility] upon symptom onset, was started on olanzapine, but her symptoms have not improved. <Deepti Buitrago PA-C - Last Filed: 10/30/21 03:17> Related Data Home medications: Home Medications Medication Instructions Recorded Confirmed levetiracetam 500 mg tablet 500 mg PO Q12H 01/29/19 04/07/20 metoprolol succinate 50 mg 50 mg PO 1800 01/29/19 10/30/21 tablet,extended release 24 hr aspirin 81 mg capsule 81 mg PO DAILY 06/05/21 10/30/21 amlodipine 10 mg tablet 5 mg PO DAILY 10/30/21 10/30/21 folic acid 1 mg tablet 1 mg PO DAILY 10/30/21 10/30/21 melatonin 6 mg PO BID 10/30/21 10/30/21 valproic acid (as sodium salt) 250 250 mg PO 10/30/21 mg/5 mL oral solution <YANA Costa Filed: 10/30/21 03:17> Allergies/Adverse reactions: Allergies Allergy/AdvReac Type Severity Reaction Status Date / Time No Known Allergies Allergy Verified 10/29/21 22:50 <Deepti Buitrago PA-C - Last Filed: 10/30/21 03:17> Review of Systems Review of Systems: ROS unobtainable: Yes unobtainable due to mental status <Deepti Buitrago PA-C - Last Filed: 10/30/21 03:17> [facility] Past Medical History Medical History: Medical History Anemia Bilateral breast cancer (~2015) Status post bilateral partial mastectomy with adjuvant radiation therapy and aromatase inhibitor. 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 Partial seizures Onset at age 55. <Deepti Buitrago PA-C - Last Filed: 10/30/21 03:17> Surgical History Surgical History: Surgical History History of colonoscopy (~12/2013) Removal of tubular adenoma and hyperplastic polyp. History of hemorrhoidectomy (~2010) History of partial mastectomy of both breasts (~09/2015) <Deepti Buitrago PA-C - Last Filed: 10/30/21 03:17> Family History Family History: Family History Father Family history of tuberculosis Sibling Family history of muscular dystrophy Hypertension Mother Family history of heart disease in male family member before age 55 Other Diabetes mellitus <Deepti Buitrago PA-C - Last Filed: 10/30/21 03:17> Social History Social History: Social History Social History: The patient lives in [place]. Smoked a few cigarettes a day intermittently over the years but has not he smoked for at least 5 ye
[2021-10-29 23:04] LABS: Add Urine Microscopic? YES
[2021-10-29 23:06] LABS: Basophils Percent Auto 0.3 % (0.2-1.2); Eosinophils Percent Auto 0.1 % (0-4.4); Hematocrit 35.3 % (37.0-47.0); Hemoglobin 11.2 g/dL (12.0-15.0); Immature Granulocyte Absolute 0.07 K/mm3 (0.00-0.031); Immature Granulocyte Percent A 0.6 % (0-0.5); Lymphocytes Absolute Auto 1.14 K/mm3 (0.9-3.2); Mean Corpuscular HGB Conc 31.7 g/dl (32-36); Mean Corpuscular Hemoglobin 27.8 pg (26-34); Mean Corpuscular Volume 87.6 fl (80-100); Mean Platelet Volume 10.3 fl (7.4-10.4); Monocytes Absolute Auto 0.9 K/mm3 (0.1-0.6); Monocytes Percent Auto 7.4 % (2.6-8.5); Neutrophils Absolute Auto 9.3 K/mm3 (1.3-6.7); Neutrophils Percent Auto 81.6 % (45.5-73.1); Platelet Count Result 229 k/mm3 (150-375); Red Blood Count 4.03 M/mm3 (4.2-5.4); Red Cell Distribution Width 14.9 % (11.5-14.5); White Blood Count 11.5 K/mm3 (4.5-10.0)
[2021-10-29 23:16] LABS: Alanine Aminotransferase 21 U/L (6-35); Albumin Level 4.2 g/dL (3.5-5.1); Alkaline Phosphatase 110 U/L (38-126); Anion Gap 8 mmol/L (8-16); Aspartate Amino Transferase 45 U/L (14-36); Bilirubin,Total 0.6 mg/dL (0.2-1.3); Blood Urea Nitrogen 22 mg/dL (7-17); Calcium 9.2 mg/dL (8.4-10.2); Carbon Dioxide 25 mmol/L (22-30); Chloride 99 mmol/L (98-107); Estimated CRCL calculation 30 ml/min; Estimated Glomerular Filt Rate 58; Glucose 120 mg/dL (65-110); Potassium 4.4 mmol/L (3.4-5.0); Sodium 132 mmol/L (137-145)
--- NOTE | 2021-10-29 23:17 | ECG_ITS ---
Measurements Intervals [place] Rate: 80 P: 93 OR: 158 QRS: 73 QRSD: 93 T: 82 QT: 372 QTc: 430 Interpretive Statements SINUS RHYTHM MINIMAL Q WAVES- INFERIOR LEADS BASELINE ARTIFACT- I, AVL BORDERLINE ECG Electronically Signed On 10-30-2021 8:48:14 CDT by Dariusz Monzon D.O.
[2021-10-29 23:36] VITALS: O2SAT 100
[2021-10-29 23:50] VITALS: O2SAT 100
[2021-10-30] VITALS (14 sets, daily range): BP systolic 101–134; BP diastolic 43–72; PULSE 70–91; RESP 16–20; TEMP 36.1–36.3; O2SAT 95–100; BMI 18.4
[2021-10-30 02:20] LABS: SARS-CoV-2 RNA PCR Negative
[2021-10-30 02:29] LABS: Lactic Acid Reflex 1.6 mmol/L (0.7-2.0)
--- NOTE | 2021-10-30 03:55 | ADMGEN ---
This patient, Mojgan Conley, was admitted to 3 Med Surg Room 329-01. Patient/family oriented to hospital policies and general routines including ID bracelet, bed and alarms, visiting hours, pain management, procedures, bathroom and other care routines, personal items, smoking policy, room service/diet, and visiting hours. Information on how to activate the Rapid Response Team has been discussed. Patient/Family are encouraged to report perceived risks to care and to ask questions if they do not understand what they are told or what they should do.
--- NOTE | 2021-10-30 04:32 | PM.IMHP ---
H&P: HPI History of Present Illness Date/Time: 10/30/21 04:32 Chief Complaint: Altered mental status Narrative: Patient is an 80-year-old female past medical history of breast cancer, history of lung cancer, status post radiation essential hypertension, partial seizures presents to ED with complaints confusion and walking out into traffic as per family. Apparently in the past, patient has had tract infection that led to confused. Family is concerned she may have another urinary tract infection. Confusion has been getting worse over last couple days. Apparently patient lives alone and has family nearby. She was also followed at [facility]. She has not been tested her dementia for before. In the ED: EKG shows normal sinus rhythm, chest x-ray and CT head no acute finding, slight leukocytosis at 11.5l otherwise labs are all stable. No other signs of infection or sepsis. Slight hyponatremia 132. Although labs are at baseline. Patient to be admitted for the altered mental status and possible placement as she lives alone and has not same. Review of Systems Review of Systems: Constitutional: No Fever, No Chills, No Night Sweats, No Fatigue, No Malaise ENT/Mouth: No Hearing Changes, No Ear Pain, No Nasal Congestion, No Sinus Pain, No Hoarseness, No sore throat, No Rhinorrhea, No Swallowing Difficulty Eyes: No Eye Pain, No Redness, No Vision Changes Cardiovascular: No Chest Pain, No Palpitations, No Dyspnea on Exertion, No Orthopnea, No Claudication, No Edema Respiratory: No Cough, No Sputum, No Wheezing, No Shortness of Breath Gastrointestinal: No Nausea, No Vomiting, No Diarrhea, No Constipation, No Abdominal Pain, No Heartburn, No Hematochezia, No Melena Genitourinary: No Dysuria, No Urinary Frequency, No Hematuria, No Urinary Incontinence, No Urgency Musculoskeletal: No Arthralgias, No Myalgias, No Joint Swelling, No Joint Stiffness, No Back Pain Skin: No Skin Lesions, No Pruritis, No Hair Changes Neuro: No Weakness, No Numbness, No Paresthesias, No Loss of Consciousness, No Syncope, No Dizziness, No Headache Psych: No Anxiety/Panic, No Depression, No Insomnia Heme: No Bruising, No Bleeding Lymph: No Adenopathy Endocrine: No Polyuria, No Polydipsia, No Temperature Intolerance [facility] Past Medical History Medical History Anemia Bilateral breast cancer (~2015) Status post bilateral partial mastectomy with adjuvant radiation therapy and aromatase inhibitor. 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 Partial seizures Onset at age 55. Surgical History Surgical History History of colonoscopy (~12/2013) Removal of tubular adenoma and hyperplastic polyp. History of hemorrhoidectomy (~2010) History of partial mastectomy of both breasts (~09/2015) Family History Family History Father Family history of tuberculosis Sibling Family history of muscular dystrophy Hypertension Mother Family history of heart disease in male family member before age 55 Other Diabetes mellitus Social History Social History Social History: The patient lives in [place]. Smoked a few cigarettes a day intermittently over the years but has not he smoked for at least 5 years. No alcohol or illicit substance abuse. 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 Eder (daughter) and Gage (son) are her emergency contact and surrogate decision makers. She wishes to be a full code. Smoking status: Former smoker Tobacco type: cigarettes Alcohol intake: never Substance use: never Gender identity (if verbalized by
[2021-10-30] MEDS: SODIUM CHLORIDE 0.9% IV 1,000 ML 100 ML IV CONT (05:14)
[2021-10-30] MEDS: VALPROIC ACID LIQ 250 MG/5 ML ORAL SOLUTION UDC PO ×3 (05:15→20:25)
[2021-10-30 08:52] LABS: Basophils Percent Auto 0.3 % (0.2-1.2); Eosinophils Absolute Auto 0.1 K/mm3 (0-0.3); Eosinophils Percent Auto 0.7 % (0-4.4); Hematocrit 29.3 % (37.0-47.0); Hemoglobin 9.4 g/dL (12.0-15.0); Immature Granulocyte Absolute 0.03 K/mm3 (0.00-0.031); Immature Granulocyte Percent A 0.3 % (0-0.5); Lymphocytes Absolute Auto 0.89 K/mm3 (0.9-3.2); Lymphocytes Percent Auto 9.9 % (18.3-44.2); Mean Corpuscular HGB Conc 32.1 g/dl (32-36); Mean Corpuscular Hemoglobin 27.3 pg (26-34); Mean Corpuscular Volume 85.2 fl (80-100); Mean Platelet Volume 9.9 fl (7.4-10.4); Monocytes Absolute Auto 0.8 K/mm3 (0.1-0.6); Monocytes Percent Auto 8.6 % (2.6-8.5); Neutrophils Absolute Auto 7.2 K/mm3 (1.3-6.7); Neutrophils Percent Auto 80.2 % (45.5-73.1); Platelet Count Result 196 k/mm3 (150-375); Red Blood Count 3.44 M/mm3 (4.2-5.4); Red Cell Distribution Width 14.6 % (11.5-14.5)
[2021-10-30 09:06] LABS: Anion Gap 7 mmol/L (8-16); Blood Urea Nitrogen 17 mg/dL (7-17); Carbon Dioxide 24 mmol/L (22-30); Chloride 102 mmol/L (98-107); Estimated CRCL calculation 32 ml/min; Estimated Glomerular Filt Rate > 60; Glucose 90 mg/dL (65-110); Potassium 3.8 mmol/L (3.4-5.0); Sodium 133 mmol/L (137-145)
[2021-10-30] MEDS: amLODIPine BESYLATE 5 MG TABLET PO (09:33)
[2021-10-30 09:36] LABS: Thyroid Stimulating Hormone 0.318 uIU/mL (0.465-4.680)
[2021-10-30 10:24] LABS: Ammonia < 9 umol/L (9-30)
--- NOTE | 2021-10-30 10:29 | WPDNEURCNPN ---
Assessment and Plan Assessment and plan (1) Cognitive impairment: Code(s): R41.89 - Other symptoms and signs involving cognitive functions and awareness Status: Acute Plan 1 dementia with intermittent wandering 2 patient has been taking Keppra with questionable history of seizures EEG can be obtained 3 will be unable to have a low as per the information available from the records Consult date: 10/30/21 Time Seen: 09:00 Reason for consult: change in the mental status HPI: Mojgan Conley is a 81 year old female admitted to the hospital through the emergency room for the complaints of change in the mental status over the last 1 and half weeks. Information was mainly obtained from the patient's son in the emergency room who reported that he will frequently skip the house, walked into oncoming traffic, disoriented and confused he also reported in the past this particular symptoms were noted when she had the urinary tract infection but she was treated for that in May of this year she had refused taking her medication she lives by herself she was started as central seen was the hospital on olanzapine she was admitted there . Her outpatient medications included levetiracetam 500 mg q.12 hours, metoprolol 50 mg daily, aspirin 81 mg daily and valproic acid also 250 mg daily, reportedly not allergic to any medication, but she does have ongoing history of breast cancer, previous cerebrovascular accident, hypertension, non-small cell lung cancer, and history of partial seizures, initial examination in the emergency room was grossly nonfocal neurologically vital signs were stable routine lab was with sodium of [address] scan of the brain revealed no evidence of acute bleed or any major vessel stroke Review of Systems Review of Systems: All systems reviewed & are unremarkable except as noted in HPI and below PMFSH Past Medical History Medical History Anemia Bilateral breast cancer (~2015) Status post bilateral partial mastectomy with adjuvant radiation therapy and aromatase inhibitor. 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 Partial seizures Onset at age 55. Surgical History Surgical History History of colonoscopy (~12/2013) Removal of tubular adenoma and hyperplastic polyp. History of hemorrhoidectomy (~2010) History of partial mastectomy of both breasts (~09/2015) Family History Family History Father Family history of tuberculosis Sibling Family history of muscular dystrophy Hypertension Mother Family history of heart disease in male family member before age 55 Other Diabetes mellitus Social History Social History Social History: The patient lives in [place]. Smoked a few cigarettes a day intermittently over the years but has not he smoked for at least 5 years. No alcohol or illicit substance abuse. 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 Eder (daughter) and Gage (son) are her emergency contact and surrogate decision makers. She wishes to be a full code. Smoking status: Former smoker Tobacco type: cigarettes Alcohol intake: never Substance use: never Gender identity (if verbalized by the patient): Female Spiritual care concerns: No Meds Home Medications and Allergies Home Medications Medication Instructions Recorded Confirmed Type metoprolol succinate 50 mg 50 mg PO DAILY 01/29/19 10/30/21 History tablet,extended release 24 hr aspirin 81 mg capsule 81 mg PO DAILY 06/05/21 10/30/21 History acetaminophen 500 mg tablet 500 mg PO Q6H PRN Pain 10/10
[2021-10-30 10:40] LABS: Free T4 Free Thyroxine 1.18 ng/mL (0.78-2.19)
[2021-10-30 10:53] LABS: Valproic Acid < 10.0 ug/mL (50-120)
[2021-10-30] MEDS: METOPROLOL SUCCINATE EXT REL 50 MG TABCR PO (11:23)
[2021-10-30] MEDS: ASPIRIN 81 MG ENTERIC TABLET PO (11:23)
[2021-10-30] MEDS: FOLIC ACID 1 MG TABLET PO (11:23)
[2021-10-30] MEDS: HEPARIN SODIUM 5,000 UNITS/ML VIAL 5000 UNITS SUB-Q ×2 (11:24→20:24)
[2021-10-30 11:40] LABS: Folic Acid 6.4 ng/mL (2.76->20); Vitamin B12 > 1000.0 pg/mL (239-931)
--- NOTE | 2021-10-30 19:54 | PM.IMPN ---
Progress Note: A&P Additional Plan H&P after midnight so see it for full detail. Ordered dementia workup labs, Hx seizure disorder so ordered EEG and valproic acid level. Will monitor. Subjective Date/time seen: 10/30/21 19:54 Patient says she was given medication for a urinary tract infection. She says she did not take the medication because it made her feel sleepy when she took it the first few days. Currently, she denies pain with urination, increased urinary frequency, suprapubic pain. Exam Narrative: GENERAL: NAD, cooperative HEENT: Normocephalic, atraumatic, anicteric NECK: Supple CV: Normal S1, S2, RRR, No MRG RESP: CTAB, Normal work of breathing. Abdomen: Soft, non-tender, non-distended, +BS EXTREMITIES: Warm and well perfused, no clubbing, cyanosis, or edema. SKIN: warm, dry and intact. NEURO:Mental Status: A&Ox 3, stated name, , October,. Objective Data Vital Signs Vital Signs: Vital Signs - 24 hr 10/29/21 22:50 10/29/21 22:52 10/29/21 23:36 Temperature Pulse Rate 84 Respiratory Rate 16 Blood Pressure 130/67 Pulse Oximetry 100 100 100 Oxygen Delivery 10/29/21 23:50 10/30/21 00:02 10/30/21 01:57 Temperature Pulse Rate 91 Respiratory Rate 20 Blood Pressure 125/63 Pulse Oximetry 100 100 100 Oxygen Delivery 10/30/21 02:50 10/30/21 03:37 10/30/21 03:45 Temperature 97.3 F L Pulse Rate 86 88 91 Respiratory Rate 16 20 18 Blood Pressure 103/43 L 101/46 L 134/72 Pulse Oximetry 100 100 100 Oxygen Delivery 10/30/21 04:48 10/30/21 06:00 10/30/21 11:14 Temperature 97.2 F L Pulse Rate 86 82 Respiratory Rate 20 Blood Pressure 116/49 L Pulse Oximetry 100 95 Oxygen Delivery Room Air Room Air 10/30/21 11:26 10/30/21 11:23 10/30/21 09:30 Temperature Pulse Rate 70 Respiratory Rate Blood Pressure Pulse Oximetry Oxygen Delivery Room Air Room Air 10/30/21 08:00 10/30/21 12:00 10/30/21 14:00 Temperature 97.0 F L Pulse Rate 79 80 77 Respiratory Rate 20 Blood Pressure 111/46 L Pulse Oximetry 100 Oxygen Delivery 10/30/21 16:00 Temperature Pulse Rate 78 Respiratory Rate Blood Pressure Pulse Oximetry Oxygen Delivery Intake/Output Intake/Output: Intake & Output 10/27/21 10/28/21 10/29/21 10/30/21 23:59 23:59 23:59 23:59 Intake Total 1990 Output Total 550 Balance 1440 Meds/Results Medications: Active Medications Generic Name Dose Route Start Last Admin Trade Name Freq PRN Reason Stop Dose Admin Acetaminophen 650 mg 10/30/21 04:44 Acetaminophen 325 Mg Tablet PO Q4H PRN Mild Pain (1-3) or Fever Amlodipine Besylate 5 mg 10/30/21 09:00 10/30/21 09:33 Amlodipine Besylate 5 Mg Tablet PO 5 mg DAILY AVERY Administration Aspirin 81 mg 10/30/21 09:00 10/30/21 11:23 Aspirin 81 Mg Enteric Tablet PO 81 mg QAM AVERY Administration Folic Acid 1 mg 10/30/21 09:00 10/30/21 11:23 Folic Acid 1 Mg Tablet PO 1 mg DAILY AVERY Administration Heparin Sodium (Porcine) 5,000 units 10/30/21 09:00 10/30/21 11:24 Heparin Sodium 5,000 Units/Ml Vial SUB-Q 5,000 units Q12HR AVERY Administration Melatonin 6 mg 10/30/21 21:00 Melatonin 3 Mg Tablet PO 11/29/21 20:59 HS AVERY Metoprolol Succinate 50 mg 10/30/21 09:00 10/30/21 11:23 Metoprolol Succinate Ext Rel 50 Mg Tabcr PO 50 mg DAILY AVERY Administration Olanzapine 2.5 mg 10/30/21 04:50 Olanzapine 2.5 Mg Tablet PO Q6H PRN Agitation Valproate Sodium 250 mg 10/30/21 06:00 10/30/21 15:59 Valproic Acid Liq 250 Mg/5 Ml Oral Solution Udc PO 250 mg Q8HR AVERY Administration Radiology Results: ITS Impressions Chest X-Ray 10/30/21 07:21 IMPRESSION: 1. 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 No acute cardiopulmonary disease. Head CT 10/30/21 07:43 IMPRESSION: 1. No a
[2021-10-30] MEDS: MELATONIN 3 MG TABLET 6 MG PO (20:24)
[2021-10-31] VITALS (10 sets, daily range): BP systolic 131–157; BP diastolic 52–61; PULSE 76–92; RESP 18–20; TEMP 36.4; O2SAT 100
[2021-10-31] MEDS: VALPROIC ACID LIQ 250 MG/5 ML ORAL SOLUTION UDC PO ×3 (06:05→22:59)
[2021-10-31] MEDS: METOPROLOL SUCCINATE EXT REL 50 MG TABCR PO (07:59)
[2021-10-31] MEDS: HEPARIN SODIUM 5,000 UNITS/ML VIAL 5000 UNITS SUB-Q ×2 (08:01→22:59)
[2021-10-31] MEDS: amLODIPine BESYLATE 5 MG TABLET PO (08:01)
[2021-10-31] MEDS: FOLIC ACID 1 MG TABLET PO (08:01)
[2021-10-31] MEDS: ASPIRIN 81 MG ENTERIC TABLET PO (08:01)
[2021-10-31] MEDS: OLANZapine 2.5 MG TABLET PO (11:04)
--- NOTE | 2021-10-31 11:32 | PM.IMPN ---
Progress Note: A&P Assessment and Plan (1) Hypertension: Code(s): I10 - Essential (primary) hypertension Status: Acute Assessment and Plan: stable on current medication. (2) Anemia: Code(s): D64.9 - Anemia, unspecified Status: Acute Assessment and Plan: Monitor closely. Stable at present (3) Cognitive impairment: Code(s): R41.89 - Other symptoms and signs involving cognitive functions and awareness Status: Acute Assessment and Plan: patient blood culture urine cultures ordered. Because of the history of UTIs in the past will start with IV ceftriaxone. Plan # altered mental status, possible dementia -infectious workup negative, UA does not show sign of infection. Holding off on antibiotics -patient likely has dementia based on lack of metabolic explanation for symptoms. She easily gets lost and has signs of dementia. will have cognitive evaluation -consulting Neurology she may need to be on agents for dementia -patient started on Zyprexa as needed anxiety/agitation at outside facility, will continue as needed. -consult care transition mgr to help with disposition likely needs intermediate placement as she is running out into traffic, there is concern for dementia # acute kidney injury -elevated creatinine at 1.10, baseline was at 0.9 last year -may be progression of renal disease from elevated blood pressures, hypertensive nephrosclerosis or from poor PO intake -will give 1 L normal saline # other chronic conditions - essential hypertension: continue home amlodipine, metoprolol succinate -may continue home aspirin -insomnia: Continue melatonin q.h.s. -history of partial seizures: Continue valproic acid folic acid Diet: bedside swallow eval, then regular diet DVT prophylaxis: Heparin Code status: Full code Disposition: Observation, likely needs intermediate placement Additional Plan 10/31/2021 Plan is to continue current treatment monitor patient closely. Blood and urine culture pending. Subjective Date/time seen: 10/31/21 11:32 Patient was seen during the morning rounds today. Patient is slightly more alert today. No shortness of breath or chest pain. No abdominal pain, nausea, no vomiting. Mood stable. Review of Systems Review of Systems: All review of systems are negative except those, noted in history and physical examination Exam Narrative: GENERAL: NAD, cooperative HEENT: Normocephalic, atraumatic, anicteric NECK: Supple CV: Normal S1, S2, RRR, No MRG RESP: CTAB, Normal work of breathing. Abdomen: Soft, non-tender, non-distended, +BS EXTREMITIES: Warm and well perfused, no clubbing, cyanosis, or edema. SKIN: warm, dry and intact. NEURO:Mental Status: A&Ox 3, stated name, SHANEL, October,. Objective Data Vital Signs Vital Signs: Vital Signs - 24 hr 10/30/21 12:00 10/30/21 14:00 10/30/21 16:00 Temperature 36.1 C L Pulse Rate 80 77 78 Respiratory Rate 20 Blood Pressure 111/46 L Pulse Oximetry 100 Oxygen Delivery 10/30/21 22:00 10/30/21 20:00 10/30/21 20:00 Temperature 36.3 C L Pulse Rate 77 87 77 Respiratory Rate 20 20 Blood Pressure 121/51 L Pulse Oximetry 100 100 Oxygen Delivery Room Air 10/31/21 00:00 10/31/21 04:00 10/31/21 05:40 Temperature 36.4 C L Pulse Rate 76 78 88 Respiratory Rate 20 Blood Pressure 131/61 Pulse Oximetry 100 Oxygen Delivery 10/31/21 07:59 10/31/21 08:00 Temperature Pulse Rate 81 81 Respiratory Rate Blood Pressure Pulse Oximetry Oxygen Delivery Intake/Output Intake/Output: Intake & Output 10/28/21 10/29/21 10/30/21 10/31/21 23:59 23:59 23:59 23:59 Intake Total 1990 890 Output Total 550 300 Balance 1440 590 Meds/Results Medications: Active Medications Generic Name Dose Route Start Last Admin Trade Name Vidalq PRN Reason Stop Dose Admin Acetaminophen 650 mg 10/30/21 04:44 Acetaminophen 325 Mg Tablet
--- NOTE | 2021-10-31 16:16 | STIPEVAL ---
Thank you for referring Mojgan Conley to [facility].? The patient is scheduled to be seen for therapy? 3-5x/week for 2 weeks. Please review, sign, date and return this plan of care [facility]. I agree with and certify that the following plan of care is medically necessary. Referring Physician Date Admitting Provider: Alejandro Weathers DO Attending Provider: Alejandro Weathers DO Referring Provider: MARI Inpatient Evaluation Start: 10/31/21 15:00 Freq: Status: Active Protocol: Document 10/31/21 14:30 MANDY (Rec: 10/31/21 15:55 MANDY [id number]) Therapy Assessment Status Assessment Status Assessment Status Evaluation Pain Assessment Timing of Pain Assessment Timing of Pain Assessment Pre-Treatment Self Report Self Report Pain Level 0 Pain Score Pain Score 0: Self Report Cognitive Evaluation Orientation/Memory Assessment Immediate Memory 30 Query Text:% Accuracy Recent Memory 75 Query Text:% Accuracy Remote Memory 90 Query Text:% Accuracy Spatial/Environmental Orientation 80 Query Text:% Accuracy Overall Orientation and Memory Mild Deficits Problem Solving Complex Problem Solving: Percent of 50 Accuracy 0-100 (%) Overall Problem Solving Skills Moderate Deficits Thought Organization Categorizing: Percent of Accuracy 0-100 25 (%) Overall Thought Organization Ability Moderate Deficits Auditory Processing and Retention Assessment Complex Yes/No Question (% Accuracy) 70 Response Latency Mild Deficits Overall Auditory Processing Ability Mild Deficits Auditory Processing Comments Mojgan appeared to fatigue some as the evaluation continued. Her family was present at the end of the evaluation and reported Mojgan does great with independent living unless she has a UTI when she becomes very confused. Speech Therapy Teaching Speech Therapy Teaching Teaching Topic Swallowing/Communication Topic Component Cognition As Pertains To Home Finances,Memory,Problem Solving Recipient(s) of Teaching Patient,Family Learning Preferences One-on-One Instruction Barriers to Learning None Readiness to Learn Good Teaching Method(s) Demonstration,Discussion,One- On-One Instruction Response(s) to Teaching Verbalizes Understanding ST Clinical Summary Clinical Summary ST Clinical Summary Mojgan was pleasant and
[2021-10-31] MEDS: MELATONIN 3 MG TABLET 6 MG PO (22:58)
[2021-11-01] VITALS (10 sets, daily range): BP systolic 118–132; BP diastolic 42–73; PULSE 70–102; RESP 14–18; TEMP 36.6–36.8; O2SAT 100
[2021-11-01] MEDS: VALPROIC ACID LIQ 250 MG/5 ML ORAL SOLUTION UDC PO ×3 (05:37→22:20)
[2021-11-01 06:41] LABS: Hematocrit 30.7 % (37.0-47.0); Hemoglobin 10.2 g/dL (12.0-15.0); Mean Corpuscular HGB Conc 33.2 g/dl (32-36); Mean Corpuscular Hemoglobin 28.1 pg (26-34); Mean Corpuscular Volume 84.6 fl (80-100); Mean Platelet Volume 9.7 fl (7.4-10.4); Platelet Count Result 244 k/mm3 (150-375); Red Blood Count 3.63 M/mm3 (4.2-5.4); Red Cell Distribution Width 14.6 % (11.5-14.5); White Blood Count 5.8 K/mm3 (4.5-10.0)
[2021-11-01] MEDS: amLODIPine BESYLATE 5 MG TABLET PO (09:14)
[2021-11-01] MEDS: METOPROLOL SUCCINATE EXT REL 50 MG TABCR PO (09:14)
[2021-11-01] MEDS: FOLIC ACID 1 MG TABLET PO (09:14)
[2021-11-01] MEDS: ASPIRIN 81 MG ENTERIC TABLET PO (09:14)
[2021-11-01] MEDS: MULTIVIT W/ IRON, MINERALS 15 ML LIQUID (*BKC) PO (09:15)
[2021-11-01] MEDS: HEPARIN SODIUM 5,000 UNITS/ML VIAL 5000 UNITS SUB-Q ×2 (09:15→22:20)
--- NOTE | 2021-11-01 09:21 | PM.IMPN ---
Progress Note: A&P Assessment and Plan (1) Hypertension: Code(s): I10 - Essential (primary) hypertension Status: Acute Assessment and Plan: stable on current medication. (2) Anemia: Code(s): D64.9 - Anemia, unspecified Status: Acute Assessment and Plan: Monitor closely. Stable at present (3) Cognitive impairment: Code(s): R41.89 - Other symptoms and signs involving cognitive functions and awareness Status: Acute Assessment and Plan: patient blood culture urine cultures ordered. Because of the history of UTIs in the past will start with IV ceftriaxone. Plan # altered mental status, possible dementia -infectious workup negative, UA does not show sign of infection. Holding off on antibiotics -patient likely has dementia based on lack of metabolic explanation for symptoms. She easily gets lost and has signs of dementia. will have cognitive evaluation -consulting Neurology she may need to be on agents for dementia -patient started on Zyprexa as needed anxiety/agitation at outside facility, will continue as needed. -consult personal care worker to help with disposition likely needs group home placement as she is running out into traffic, there is concern for dementia # acute kidney injury -elevated creatinine at 1.10, baseline was at 0.9 last year -may be progression of renal disease from elevated blood pressures, hypertensive nephrosclerosis or from poor PO intake -will give 1 L normal saline # other chronic conditions - essential hypertension: continue home amlodipine, metoprolol succinate -may continue home aspirin -insomnia: Continue melatonin q.h.s. -history of partial seizures: Continue valproic acid folic acid Diet: bedside swallow eval, then regular diet DVT prophylaxis: Heparin Code status: Full code Disposition: Observation, likely needs group home placement Additional Plan 10/31/2021 Plan is to continue current treatment monitor patient closely. Blood and urine culture pending. 11/01/2021 Patient is clinically stable at present on current treatment plan. Plan is to continue current treatment and adjust medication according to the culture results. Possible discharge in the morning. Subjective Date/time seen: 11/01/21 09:21 Patient was seen during the morning rounds today. No new overnight issues. No shortness of breath or chest pain. No abdominal pain, nausea, no vomiting. Mood stable. Review of Systems Review of Systems: All systems reviewed & are unremarkable except as noted in HPI and below ( the history and physical examination.) Exam Narrative: GENERAL: NAD, cooperative HEENT: Normocephalic, atraumatic, anicteric NECK: Supple CV: Normal S1, S2, RRR, No MRG RESP: CTAB, Normal work of breathing. Abdomen: Soft, non-tender, non-distended, +BS EXTREMITIES: Warm and well perfused, no clubbing, cyanosis, or edema. SKIN: warm, dry and intact. NEURO:Mental Status: A&Ox 2, stated name, , October,. Objective Data Vital Signs Vital Signs: Vital Signs - 24 hr 10/31/21 12:00 10/31/21 14:00 10/31/21 16:00 Temperature 36.4 C L Pulse Rate 90 87 92 Respiratory Rate 18 Blood Pressure 131/52 L Pulse Oximetry 100 Oxygen Delivery 10/31/21 22:00 10/31/21 20:00 10/31/21 20:00 Temperature 36.4 C Pulse Rate 85 90 85 Respiratory Rate 18 18 Blood Pressure 157/60 H Pulse Oximetry 100 100 Oxygen Delivery Room Air 11/01/21 00:00 11/01/21 04:00 11/01/21 06:00 Temperature 36.7 C Pulse Rate 78 70 82 Respiratory Rate 18 Blood Pressure 118/42 L Pulse Oximetry 100 Oxygen Delivery 11/01/21 09:14 Temperature Pulse Rate 91 Respiratory Rate Blood Pressure Pulse Oximetry Oxygen Delivery Intake/Output Intake/Output: Intake & Output 10/29/21 10/30/21 10/31/21 11/01/21 23:59 23:59 23:59 23:59 Intake Total 1989 1969 Output Total 550 300 Balance 1440 1670 Meds/Res
--- NOTE | 2021-11-01 11:03 | WPDNEUROLOGY ---
Neurology EEG Report General Information Date of Study: 10/30/21 TEST EEG DIAGNOSIS altered mental status CONDITION OF RECORDING awake drowsy and sleep EEG NUMBER [id number] CLINICAL HISTORY patient family say is patient has been confused for the last 2 weeks EEG DESCRIPTION basic resting occipital frequency consists of medium voltage 8 to 9 hertz per 2nd alpha admixed with low-voltage 15 to 18 hertz per 2nd beta. Bilateral symmetrical sleep activity seen during sleep. Hyperventilation not done. Photic stimulation not done. Non paroxysmal. Nonfocal. Nonlateralizing. IMPRESSION No significant abnormalities noted
--- NOTE | 2021-11-01 12:13 | WPDNEUROPN ---
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 very well have focal epilepsy which will contribute to disorientation intermittently and will benefit from anticonvulsants 3 supervision by the family Subjective Date/time seen: 11/01/21 12:13 Interval history: follow-up with the initial consultation on October 30, 2021 at this particular time her daughter happens to be in the room who was asking for the cognitive impairment that is dementia, patient lives alone daughter was advised that her CT scan of the head was negative except the 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, SARS-CoV-2 is negative, EEG is normal Review of Systems Review of Systems: All systems reviewed & are unremarkable except as noted in HPI and below Exam Const: General: cooperative, healthy appearing, comfortable and no acute distress Nutritional Appearance: average body habitus Orientation/consciousness: oriented to person and oriented to place HENMT: Head: normocephalic General nose exam: Normal external nose present Face and sinus: normal facial exam Mouth: Yes Normal oral and palatal mucosa present Eyes: General: appearance normal, both eyes and all related structures Visual Gaitan: normal visual gaitan by confrontation Alignment and Position: alignment normal Periorbital: periorbital findings normal Eyelids: eyelids normal Conjunctivae: conjunctivae normal EOM: EOMs intact bilaterally Neck: Neck: full ROM Resp: Effort & Inspection: able to speak in complete sentences Cardio: Rhythm: regular rhythm Skin: General skin exam: no rashes or lesions noted Neuro: General: oriented to person and oriented to place Cranial nerves: Yes CN's II-XII intact bilaterally Speech: normal speech Gait exam (Neuro): Normal gait present Motor exam (neuro): 5/5 motor strength present throughout Sensory Exam: normal sensation Deep tendon reflexes (DTR's): Right triceps reflex intensity grade: 1+, Left triceps reflex intensity grade: 1+, Rt Biceps (C5, C6): 1+, Left biceps reflex intensity grade: 1+, Right brachioradialis reflex intensity grade: 1+, Left brachioradialis reflex intensity grade: 1+, Right patellar reflex intensity grade: 1+, Left patellar reflex intensity grade: 1+, Right ankle reflex intensity grade: 1+ and Left ankle reflex intensity grade: 1+ Coordination: [id number] test normal Psych: Appearance: well kempt Speech and movement: Normal speech and movement present Affect: normal affect Attitude: cooperative Thought process: Circumstantial thought process present Thought content: Yes Normal thought content present Insight: Limited insight present (Psych) Judgement: Limited judgement present (Psych) Objective Data Vital Signs Vital Signs: Vital Signs - 24 hr 10/31/21 14:00 10/31/21 16:00 10/31/21 22:00 Temperature 36.4 C L 36.4 C Pulse Rate 87 92 85 Respiratory Rate 18 18 Blood Pressure 131/52 L 157/60 H Pulse Oximetry 100 100 Oxygen Delivery 10/31/21 20:00 10/31/21 20:00 11/01/21 00:00 Temperature Pulse Rate 90 85 78 Respiratory Rate 18 Blood Pressure Pulse Oximetry 100 Oxygen Delivery Room Air 11/01/21 04:00 11/01/21 06:00 11/01/21 09:14 Temperature 36.7 C Pulse Rate 70 82 91 Respiratory Rate 18 Blood Pressure 118/42 L Pulse Oximetry 100 Oxygen Delivery 11/01/21 08:00 Temperature Pulse Rate Respiratory Rate Blood Pressure Pulse Oximetry 100 Oxygen Delivery Room Air Intake/Output Intake/Output:
[2021-11-01] MEDS: OLANZapine 2.5 MG TABLET PO (13:24)
[2021-11-01] MEDS: MELATONIN 3 MG TABLET 6 MG PO (22:20)
[2021-11-02] VITALS (9 sets, daily range): BP systolic 120–135; BP diastolic 43–78; PULSE 77–100; RESP 18; TEMP 36.2–36.8; O2SAT 94–100
[2021-11-02] MEDS: VALPROIC ACID LIQ 250 MG/5 ML ORAL SOLUTION UDC PO ×2 (06:28→14:22)
--- NOTE | 2021-11-02 08:38 | PM.IMPN ---
Subjective Date/time seen: 11/02/21 08:38 Objective Data Vital Signs Vital Signs: Vital Signs - 24 hr 11/01/21 09:14 11/01/21 14:00 11/01/21 12:00 Temperature 97.8 F Pulse Rate 91 90 90 Respiratory Rate 14 Blood Pressure 132/73 Pulse Oximetry 100 Oxygen Delivery 11/01/21 16:00 11/01/21 22:00 11/01/21 20:00 Temperature 98.3 F Pulse Rate 102 H 84 Respiratory Rate 18 Blood Pressure 130/65 Pulse Oximetry 100 Oxygen Delivery Room Air 11/02/21 06:00 11/01/21 20:00 11/02/21 00:00 Temperature 98.3 F Pulse Rate 83 83 81 Respiratory Rate 18 Blood Pressure 135/78 Pulse Oximetry 100 Oxygen Delivery 11/02/21 04:00 Temperature Pulse Rate 77 Respiratory Rate Blood Pressure Pulse Oximetry Oxygen Delivery Intake/Output Intake/Output: Intake & Output 10/30/21 10/31/21 11/01/21 11/02/21 23:59 23:59 23:59 23:59 Intake Total 1989 1970 1160 250 Output Total 550 300 400 300 Balance 1440 1670 760 -50 Meds/Results Medications: Active Medications Generic Name Dose Route Start Last Admin Trade Name Freq PRN Reason Stop Dose Admin Acetaminophen 650 mg 10/30/21 04:44 Acetaminophen 325 Mg Tablet PO Q4H PRN Mild Pain (1-3) or Fever Amlodipine Besylate 5 mg 10/30/21 09:00 11/01/21 09:14 Amlodipine Besylate 5 Mg Tablet PO 5 mg DAILY AVERY Administration Aspirin 81 mg 10/30/21 09:00 11/01/21 09:14 Aspirin 81 Mg Enteric Tablet PO 81 mg QAM AVERY Administration Folic Acid 1 mg 10/30/21 09:00 11/01/21 09:14 Folic Acid 1 Mg Tablet PO 1 mg DAILY AVERY Administration Heparin Sodium (Porcine) 5,000 units 10/30/21 09:00 11/01/21 22:20 Heparin Sodium 5,000 Units/Ml Vial SUB-Q 5,000 units Q12HR AVERY Administration Melatonin 6 mg 10/30/21 21:00 11/01/21 22:20 Melatonin 3 Mg Tablet PO 11/29/21 20:59 6 mg HS AVERY Administration Metoprolol Succinate 50 mg 10/30/21 09:00 11/01/21 09:14 Metoprolol Succinate Ext Rel 50 Mg Tabcr PO 50 mg DAILY AVERY Administration Multivitamins/Minerals 15 ml 11/01/21 09:00 11/01/21 09:15 Multivit W/ Iron, Minerals 15 Ml Liquid (*Bkc) PO 15 ml DAILY AVERY Administration Olanzapine 2.5 mg 10/30/21 04:50 11/01/21 13:24 Olanzapine 2.5 Mg Tablet PO 2.5 mg Q6H PRN Administration Agitation Valproate Sodium 250 mg 10/30/21 06:00 11/02/21 06:28 Valproic Acid Liq 250 Mg/5 Ml Oral Solution Udc PO 250 mg Q8HR AVERY Administration Radiology Results: ITS Impressions Chest X-Ray 10/30/21 07:21 IMPRESSION: 1. 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 No acute cardiopulmonary disease. Head CT 10/30/21 07:43 IMPRESSION: 1. No acute intracranial abnormality. 2: Chronic left parietal lobe infarction with encephalomalacia. 3: Chronic age-related findings.
[2021-11-02 09:26] LABS: Rapid Plasma Reagin Non-Reactive (NonReactive)
[2021-11-02] MEDS: amLODIPine BESYLATE 5 MG TABLET PO (09:29)
[2021-11-02] MEDS: FOLIC ACID 1 MG TABLET PO (09:29)
[2021-11-02] MEDS: METOPROLOL SUCCINATE EXT REL 50 MG TABCR PO (09:29)
[2021-11-02] MEDS: HEPARIN SODIUM 5,000 UNITS/ML VIAL 5000 UNITS SUB-Q (09:30)
[2021-11-02] MEDS: ASPIRIN 81 MG ENTERIC TABLET PO (09:30)
[2021-11-02] MEDS: MULTIVIT W/ IRON, MINERALS 15 ML LIQUID (*BKC) PO (09:32)
--- NOTE | 2021-11-02 15:42 | PM.DS ---
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 Seizure hx with inconsistent medication adherence, per daughter, Gian. EEG normal but valproic acid level <10. TSH shows subclinical hyperthyroidism. Ammonia negative. LFTs normal. Baseline creatinine function. RPR negative. On exam on the morning of 10/30 the patient was alert and oriented x4 stating her name, date of , October and that she was at [facility]. Today she states her full name, date of , November 02, 2021, states the season is summer and that she is at [facility]. Called and had discussion with daughter, Gian, about cognitive impairment, dementia, risk factors for cognitive impairment and dementia. This is all likely cognitive impairment and or dementia but could be seizure related as patient may not be taking her mediation at home. Lumbar puncture was not done due to no sign of infection. -Needs MoCA ([place] cognitive assessment) test to be completed outpatient by PCP -Neurology consulted - discussed patient with Dr. Hernandez today, who recommends starting keppra 250 mg BID with no loading dose. -Continue valproic acid 250 mg q8h -Start keppra 250 mg BID -Follow up with PCP within 1 week (by Tuesday11/06/21) this was discussed with the daughter who agreed to have an appointment by that date -Continue Olanzapine 2.5 mg qhs PRN agitation (2) Hypertension: Code(s): I10 - Essential (primary) hypertension Status: Acute Assessment and Plan: Amlodipine 5 mg po daily, metoprolol 50 mg daily. (3) Anemia: Code(s): D64.9 - Anemia, unspecified Status: Acute Assessment and Plan: B12 and folate are within range. Stable during this hospitalization. MCV 80s. Would benefit from a workup for iron deficency anemia by primary care physician outpatient. (4) Cognitive impairment: Code(s): R41.89 - Other symptoms and signs involving cognitive functions and awareness Status: Acute Assessment and Plan: Patient had CT head showing prior stroke with encephalomalacia and known seizure history per daughter Gian with patient being inconsistent with medication adherence possibly due to cognitive impairment. EEG showed no seizure activity. Valproic acid level <10. Will need to complete workup for dementia with MMSE vs [place] Cognitive Assessment test outpatient. 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 Patient started on keppra 250 mg BID. (6) Subclinical hyperthyroidism: Code(s): E05.90 - Thyrotoxicosis, unspecified without thyrotoxic crisis or storm Status: Acute Assessment and Plan: TSH 0.314 and free t4 1.18. Will defer treatment at this time. Will need to have thyroid labs rechecked in 6 weeks. (7) Partial seizures: Code(s): R56.9 - Unspecified convulsions Status: Acute Assessment and Plan: Takes valproic acid at home but valproic acid level <10/undetecable. Patient had not had any overt seizrue activity while hospitalized and EEG showed no seizure activity. Patient will continue valproic acid plus keppra for discharge. -Valproic acid BID -Folic acid (8) Non-small cell lung cancer: Onset Date: ~2018 Code(s): C34.90 - Malignant neoplasm of unspecified part of unspecified bronchus or lung Status: Acu
[2021-11-02] MEDS: levETIRAcetam 250 MG TABLET PO (17:00)
== END 2021-11-02 17:30 | disposition home or self-care (01) ==
LOC: ANHED 10-30 03:17 → ANH3MEDSUR 10-30 13:51
PROVIDERS: Internal Medicine; Physician Assistant; Admitting Provider Student in an Organized Health Care Education/Training Program; Emergency Provider Emergency Medicine; PCP Family Medicine; Visit Provider Family Medicine
DX: I63.532 Cerebral infarction due to unspecified occlusion or stenosis of left posterior cerebral artery (principal); G93.89 Other specified disorders of brain; R41.82 Altered mental status, unspecified; D64.9 Anemia, unspecified; I10 Essential (primary) hypertension; Z85.3 Personal history of malignant neoplasm of breast; G40.109 Localization-related (focal) (partial) symptomatic epilepsy and epileptic syndromes with simple partial seizures, not intractable, without status epilepticus; D72.829 Elevated white blood cell count, unspecified; G47.00 Insomnia, unspecified; E87.1 Hypo-osmolality and hyponatremia; N17.9 Acute kidney failure, unspecified; E05.80 Other thyrotoxicosis without thyrotoxic crisis or storm; F03.90 Unspecified dementia, unspecified severity, without behavioral disturbance, psychotic disturbance, mood disturbance, and anxiety; Z20.822 Contact with and (suspected) exposure to COVID-19; Z90.13 Acquired absence of bilateral breasts and nipples; Z92.3 Personal history of irradiation; Z86.73 Personal history of transient ischemic attack (TIA), and cerebral infarction without residual deficits; Z85.118 Personal history of other malignant neoplasm of bronchus and lung; Z87.891 Personal history of nicotine dependence; Z79.82 Long term (current) use of aspirin; Z79.899 Other long term (current) drug therapy
CPT/HCPCS: 36415; 70450; 71046; 80048; 80053; 80164; 81001; 82140; 82607; 82746; 83605; 84439; 84443; 85025; 85027; 86592; 87040; 87086; 93005; 95816; 96125; 96361; 96365; 96372; 96376; 97110; 97116; 97161; 97165; 99285; A9270; C9803; G0378; J0696; J1644; J7030; U0003; U0005

== ENCOUNTER 2021-11-17 12:10 | Emergency (ER) | payer MEDICARE, SELFPAY ==
--- NOTE | ~2021-11-17 | CT_ITS ---
EXAMINATION: CT abdomen pelvis wo con DATE: 11/17/2021 13:56 INDICATION: Left lower quadrant pain. TECHNIQUE: Computed tomography (CT) of the abdomen and pelvis was performed without intravenous contr ast. The dose-length product was 202.77 mGy-cm. Automated exposure control and iterative reconstructi on technique were employed. COMPARISON: Pet/CT scan dated 09/26/2018. FINDINGS: Heart size is normal. No significant pleural or pericardial effusion. 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 There is lower lobe atelectasis. Heart size is normal. There are calcified granulomas of the spleen. The liver , pancreas, adrenal glands and kidneys are unremarkable. Gallbladder is moderately distended. There i s moderate diffuse atherosclerosis without aneurysm. Colonic diverticulosis without evidence for dive rticulitis. Nonobstructive bowel gas pattern. Small fat-containing left inguinal hernia. Mild-moderat e lumbar spondylosis. Mild chronic superior endplate compression deformity of T11. Moderate osteoarth ritis of the hips. IMPRESSION: 1. No acute abdominal abnormality Reviewed, dictated and finalized at location A.
[2021-11-17 12:17] VITALS: BP 112/74; PULSE 98; RESP 16; TEMP 36.4; O2SAT 100
[2021-11-17 12:38] VITALS: BP 110/55; PULSE 88; RESP 15; O2SAT 100
[2021-11-17 12:44] LABS: Basophils Percent Auto 0.6 % (0.2-1.2); Eosinophils Absolute Auto 0.1 K/mm3 (0-0.3); Eosinophils Percent Auto 1.8 % (0-4.4); Hematocrit 31.7 % (37.0-47.0); Hemoglobin 9.9 g/dL (12.0-15.0); Immature Granulocyte Absolute 0.04 K/mm3 (0.00-0.031); Immature Granulocyte Percent A 0.6 % (0-0.5); Lymphocytes Absolute Auto 0.47 K/mm3 (0.9-3.2); Lymphocytes Percent Auto 7.1 % (18.3-44.2); Mean Corpuscular HGB Conc 31.2 g/dl (32-36); Mean Corpuscular Hemoglobin 26.5 pg (26-34); Mean Platelet Volume 9.9 fl (7.4-10.4); Monocytes Absolute Auto 0.4 K/mm3 (0.1-0.6); Neutrophils Absolute Auto 5.6 K/mm3 (1.3-6.7); Neutrophils Percent Auto 83.9 % (45.5-73.1); Platelet Count Result 341 k/mm3 (150-375); Red Blood Count 3.73 M/mm3 (4.2-5.4); Red Cell Distribution Width 14.9 % (11.5-14.5); White Blood Count 6.6 K/mm3 (4.5-10.0)
--- NOTE | 2021-11-17 13:53 | PC.NURSE ---
Phlebotomy called at this time due to patient's Green top rejected multiple times, attempted by multiple people.
--- NOTE | 2021-11-17 13:56 | PC.NURSE ---
Phlebotomy states that is going to be a while.
[2021-11-17 14:55] LABS: Appearance Urine Clear (Clear); Bilirubin Urine 1+ (Negative); Blood Urine 1+ (Negative); Color Urine Yellow (Yellow); Glucose Urine UA Negative (Negative); Ketones Urine Negative (Negative); Leukocyte Esterase Ur Negative LEU/UL (Negative); Nitrate Urine Negative (Negative); Protein Urine 1+ mg/dL (Negative)
[2021-11-17 15:04] LABS: Mucus Urine Rare /lpf
[2021-11-17 15:27] LABS: Add Urine Microscopic? YES
--- NOTE | 2021-11-17 15:36 | PC.NURSE ---
called lab again and they stated the cardiologist was busy but someone would be up to see if they could help
[2021-11-17 16:14] LABS: Alanine Aminotransferase 26 U/L (6-35); Albumin Level 3.4 g/dL (3.5-5.1); Alkaline Phosphatase 180 U/L (38-126); Anion Gap 13 mmol/L (8-16); Aspartate Amino Transferase 44 U/L (14-36); Bilirubin,Total 0.6 mg/dL (0.2-1.3); Blood Urea Nitrogen 27 mg/dL (7-17); Calcium 9.4 mg/dL (8.4-10.2); Carbon Dioxide 23 mmol/L (22-30); Chloride 95 mmol/L (98-107); Estimated CRCL calculation 26 ml/min; Estimated Glomerular Filt Rate 48; Glucose 89 mg/dL (65-110); Lipase 55 U/L (23-300); Potassium 4.1 mmol/L (3.4-5.0); Sodium 131 mmol/L (137-145)
--- NOTE | 2021-11-17 16:22 | ED.ABDPAIN ---
HPI - Abdominal Pain General Chief Complaint: Abdominal Pain Stated Complaint: abdominal pain Time Seen by Provider: 11/17/21 12:24 Source: patient and family Mode of arrival: wheelchair Limitations: no limitations History of Present Illness HPI narrative: 81-year-old with a history of hypertension, seizure disorder been on Keppra since 2001 here with complaints of abdominal pain mostly on the left lower abdomen since yesterday. Patient denies any fever or chills. No history of nausea, vomiting or diarrhea. She states that she had a BM this morning. Denies urinary symptoms. MD elicited complaint: abdominal pain Pertinent past history: none Onset (ago): day(s) (1) Pain Consistency: intermittent Location: LLQ Severity: mild Quality: aching Radiation: none Migration to: no migration Relieving factors: nothing Associated symptoms: denies other symptoms Related Data Home Medications Medication Instructions Recorded Confirmed metoprolol succinate 50 mg 50 mg PO DAILY 01/29/19 10/30/21 tablet,extended release 24 hr aspirin 81 mg capsule 81 mg PO DAILY 06/05/21 10/30/21 acetaminophen 500 mg tablet 500 mg PO Q6H PRN Pain 10/30/21 10/30/21 folic acid 1 mg tablet 1 mg PO DAILY 10/30/21 10/30/21 melatonin 6 mg PO HS 10/30/21 10/30/21 olanzapine 2.5 mg tablet 2.5 mg PO PRN 10/30/21 10/30/21 valproic acid (as sodium salt) 250 250 mg PO TID 10/30/21 10/30/21 mg/5 mL oral solution Allergies Allergy/AdvReac Type Severity Reaction Status Date / Time No Known Allergies Allergy Verified 11/17/21 12:35 Review of Systems Review of Systems: All systems reviewed & are unremarkable except as noted in HPI and below Constitutional: Constitutional: Reports no additional constitutional complaints Eyes: Eyes: Reports no additional eye complaints ENT: Reports system reviewed and no additional complaints, except as documented Cardiovascular: Cardiovascular: Reports no additional cardiovascular complaints Respiratory: Respiratory: Reports no additional respiratory complaints Gastrointestinal: Gastrointestinal: Reports as per HPI Genitourinary: Genitourinary: Reports no additional female genitourinary complaints Musculoskeletal: Musculoskeletal: Reports back pain Neurologic: Reports system reviewed and no additional complaints, except as documented [facility] Past Medical History Medical History (Updated 11/17/21 @ 16:24 by Adolph Bell MD) Anemia Bilateral breast cancer (~2015) Status post bilateral partial mastectomy with adjuvant radiation therapy and aromatase inhibitor. 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 Partial seizures Onset at age 55. Surgical History Surgical History History of colonoscopy (~12/2013) Removal of tubular adenoma and hyperplastic polyp. History of hemorrhoidectomy (~2010) History of partial mastectomy of both breasts (~09/2015) Family History Family History Father Family history of tuberculosis Sibling Family history of muscular dystrophy Hypertension Mother Family history of heart disease in male family member before age 55 Other Diabetes mellitus Social History Social History Social History: The patient lives in [place]. Smoked a few cigarettes a day intermittently over the years but has not he smoked for at least 5 years. No alcohol or illicit substance abuse. 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 Eder (daughter) and Gage (son) are her emergency contact and surrogate decision makers. She wishes to be a full code. Smoking status: Former smoker Tobacco type: cigarettes Alcohol intake: never Substance us
[2021-11-17 16:32] VITALS: BP 111/56; PULSE 89; RESP 18; O2SAT 99
== END 2021-11-17 16:33 | disposition home or self-care (01) ==
PROVIDERS: Emergency Provider Family Medicine; PCP Family Medicine
DX: R10.32 Left lower quadrant pain (principal); I10 Essential (primary) hypertension; G40.909 Epilepsy, unspecified, not intractable, without status epilepticus; Z85.3 Personal history of malignant neoplasm of breast; Z90.13 Acquired absence of bilateral breasts and nipples; Z85.118 Personal history of other malignant neoplasm of bronchus and lung; Z92.3 Personal history of irradiation; Z87.891 Personal history of nicotine dependence
CPT/HCPCS: 36415; 51701; 74176; 80053; 81001; 83690; 85025; 99284

== ENCOUNTER 2023-06-09 08:53 | Emergency (ER) | payer MEDICARE, SELFPAY ==
[2023-06-09] VITALS (17 sets, daily range): BP systolic 122–168; BP diastolic 42–82; PULSE 67–93; RESP 12–20; TEMP 36.6–36.7; O2SAT 96–100
--- NOTE | 2023-06-09 08:56 | ECG_ITS ---
Measurements Intervals [place] Rate: 93 P: 74 DE: 131 QRS: 76 QRSD: 89 T: 68 QT: 361 QTc: 449 Interpretive Statements SINUS RHYTHM COMPARED TO ECG 10/29/2021 23:37:43 NO SIGNIFICANT CHANGES Electronically Signed On 06-09-2023 15:42:56 ENRICHMENT SPECIALIST by Henok Hess M.D.
--- NOTE | 2023-06-09 09:11 | PC.NURSE ---
Call to [place] [facility], they would have expected pt to be symptomatic 2 hrs ppost ingestion. expect hypotension, bradycardia, Hypoglycemia do EKG, place on monitor. draw med clearance labs they are sending treatments over by fax
--- NOTE | 2023-06-09 09:16 | PC.NURSE ---
Patient medication bottle with 8-50mg metoprolol succinate ER tablets placed in safe.
[2023-06-09 09:31] LABS: Basophils Percent Auto 0.5 % (0.2-1.2); Hematocrit 31.4 % (37.0-47.0); Hemoglobin 9.9 g/dL (12.0-15.0); Immature Granulocyte Absolute 0.03 K/mm3 (0.00-0.031); Immature Granulocyte Percent A 0.5 % (0-0.5); Lymphocytes Absolute Auto 1.34 K/mm3 (0.9-3.2); Lymphocytes Percent Auto 20.9 % (18.3-44.2); Mean Corpuscular HGB Conc 31.5 g/dl (32-36); Mean Corpuscular Hemoglobin 25.2 pg (26-34); Mean Corpuscular Volume 79.9 fl (80-100); Mean Platelet Volume 8.9 fl (7.4-10.4); Monocytes Absolute Auto 0.5 K/mm3 (0.1-0.6); Neutrophils Absolute Auto 4.6 K/mm3 (1.3-6.7); Neutrophils Percent Auto 71.1 % (45.5-73.1); Platelet Count Result 364 k/mm3 (150-375); Red Blood Count 3.93 M/mm3 (4.2-5.4); Red Cell Distribution Width 19.4 % (11.5-14.5); White Blood Count 6.4 K/mm3 (4.5-10.0)
[2023-06-09 09:46] LABS: Alanine Aminotransferase 19 U/L (6-35); Albumin Level 3.6 g/dL (3.5-5.1); Alkaline Phosphatase 192 U/L (38-126); Anion Gap 5 mmol/L (8-16); Aspartate Amino Transferase 44 U/L (14-36); Bilirubin,Total 0.5 mg/dL (0.2-1.3); Blood Urea Nitrogen 19 mg/dL (7-17); Calcium 9.7 mg/dL (8.4-10.2); Carbon Dioxide 28 mmol/L (22-30); Chloride 102 mmol/L (98-107); Estimated Glomerular Filt Rate > 60; Glucose 99 mg/dL (65-110); Potassium 3.7 mmol/L (3.4-5.0); Sodium 135 mmol/L (137-145)
[2023-06-09] MEDS: SODIUM CHLORIDE 0.9% IV 1,000 ML 150 ML IV CONT (09:50)
[2023-06-09] MEDS: CALCIUM GLUC 2,000 MG/NS 100ML 2,000 MG/100 ML BAG 300 MG IVPB (09:56)
[2023-06-09 09:58] LABS: Acetaminophen < 10 ug/mL (10-30); Ethanol < 10 mg/dL (<10); Salicylate < 1.0 mg/dL (2-20)
[2023-06-09] MEDS: CALCIUM GLUC 1,000 MG/NS 50 ML 1,000 MG/50 ML BAG 300 MG IVPB (09:58)
[2023-06-09 10:16] LABS: Thyroid Stimulating Hormone 0.369 uIU/mL (0.465-4.680)
--- NOTE | 2023-06-09 10:39 | ED.OVERDOSE ---
HPI - Overdose General Chief Complaint: Overdose Stated Complaint: intentional OD History of Present Illness HPI Narrative: This is an 83-year-old female, with reported history of stage IV lung cancer, brought in by EMS after a reported overdose. The patient states she took a handful my metoprolol with intention of killing herself. She denies taking any other medications or using other substances to hurt or kill herself. She denies previous attempt. She states her pain is constant and she is ready to end it all. She has no other complaints at this time. Related Data Home Medications Medication Instructions Recorded Confirmed metoprolol succinate 50 mg 50 mg PO DAILY 01/29/19 10/30/21 tablet,extended release 24 hr aspirin 81 mg capsule 81 mg PO DAILY 06/05/21 10/30/21 acetaminophen 500 mg tablet 500 mg PO Q6H PRN Pain 10/30/21 10/30/21 folic acid 1 mg tablet 1 mg PO DAILY 10/30/21 10/30/21 melatonin 6 mg PO HS 10/30/21 10/30/21 olanzapine 2.5 mg tablet 2.5 mg PO PRN 10/30/21 10/30/21 valproic acid (as sodium salt) 250 250 mg PO TID 10/30/21 10/30/21 mg/5 mL oral solution Allergies Allergy/AdvReac Type Severity Reaction Status Date / Time No Known Allergies Allergy Verified 11/17/21 12:35 Review of Systems Review of Systems: CONSTITUTIONAL: Denies fever, chills, or sweats. CARDIOVASCULAR: Denies chest pain, palpitations, or edema. RESPIRATORY: Denies cough or dyspnea. GASTROINTESTINAL: Denies abdominal pain, nausea, vomiting, or diarrhea. GENITOURINARY: Denies dysuria or hematuria. SKIN: Denies rash or itching. MUSCULOSKELETAL: Chronic chest wall pain unchanged Denies back pain, joint pain, or myalgia. NEUROLOGIC: Denies headache, numbness, dizziness, or weakness. PSYCHIATRIC: Denies anxiety or depression. [facility] Past Medical History Medical History Anemia Bilateral breast cancer (~2015) Status post bilateral partial mastectomy with adjuvant radiation therapy and aromatase inhibitor. 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 Partial seizures Onset at age 55. Surgical History Surgical History History of colonoscopy (~12/2013) Removal of tubular adenoma and hyperplastic polyp. History of hemorrhoidectomy (~2010) History of partial mastectomy of both breasts (~09/2015) Family History Family History Father Family history of tuberculosis Sibling Family history of muscular dystrophy Hypertension Mother Family history of heart disease in male family member before age 55 Other Diabetes mellitus Social History Social History Social History: The patient lives in [place]. Smoked a few cigarettes a day intermittently over the years but has not he smoked for at least 5 years. No alcohol or illicit substance abuse. 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 Eder (daughter) and Gage (son) are her emergency contact and surrogate decision makers. She wishes to be a full code. Smoking status: Former smoker Tobacco type: cigarettes Alcohol intake: never Substance use: never Substance use type: does not use Gender identity (if verbalized by the patient): Female Spiritual care concerns: No Exam Narrative: GENERAL: Well-developed, thin, and in no acute distress. HEAD: Normocephalic, atraumatic. EYES: PERRLA and EOMI. ENT: Nares clear, no rhinorrhea or epistaxis. Mucous membranes moist. Oropharynx without tonsillar hypertrophy exudate or other lesions. CHEST: Clear to auscultation. No respiratory distress. No wheezes rales or rhonchi HEART: Regular rate and rhyt
--- NOTE | 2023-06-09 13:49 | PC.NURSE ---
lunch tray ordered
--- NOTE | 2023-06-09 14:28 | PC.NURSE ---
Mirella from [place] [facility] given update on patient. Mirella said they will be closing chart on their end and to contact them if we need any additional assistance.
== END 2023-06-09 16:50 | disposition home or self-care (01) ==
PROVIDERS: Emergency Provider Preventive Medicine Aerospace Medicine; PCP Family Medicine
DX: T44.7X1A Poisoning by beta-adrenoreceptor antagonists, accidental (unintentional), initial encounter (principal); C34.90 Malignant neoplasm of unspecified part of unspecified bronchus or lung; I10 Essential (primary) hypertension; Z86.73 Personal history of transient ischemic attack (TIA), and cerebral infarction without residual deficits; Z85.3 Personal history of malignant neoplasm of breast; Z92.3 Personal history of irradiation; Z87.891 Personal history of nicotine dependence; Z90.13 Acquired absence of bilateral breasts and nipples; Z79.82 Long term (current) use of aspirin; Z79.899 Other long term (current) drug therapy
CPT/HCPCS: 36415; 80053; 80307; 84443; 85025; 93005; 96361; 96365; 99284; J0612; J0613; J7030